=== PATIENT | female | born 1975 | race Caucasian/White ===

== ENCOUNTER 2016-12-27 15:49 | Emergency (ER) | payer OTHER ==
[~2016-12-27] VITALS: Ht 170.2 cm; Wt 106.0 kg
[2016-12-27] MEDS ORDERED: SODIUM CHLORIDE 0.9% 1000ML 1,000 ML IV STA (16:06)
[2016-12-27 16:33] VITALS: Ht 170.2 cm; Wt 106.0 kg
[2016-12-27 16:36] VITALS: O2SAT 96
[2016-12-27] MEDS ORDERED: ACETAMINOPHEN 500 MG TAB PO STA (16:37)
[2016-12-27 17:03] LABS: BASO % 0.2 %; BASO ABS # 0.02 K/uL (0-0.2); EOS % 3.4 %; HEMATOCRIT 25.9 % (37-47); IG% 0.3 %; LYMPH ABS # 1.21 K/uL (1.2-3.4); MEAN CELL VOLUME 80.9 fL (80-100); MEAN CORPUSCULAR HEMOGLOBIN 25.3 pg (25-34); MEAN CORPUSCULAR HGB CONC 31.3 g/dl (32-36); MEAN PLATELET VOLUME 10.4 fL (7.4-10.4); NEUT % 75.1 %; PLATELET COUNT 339 K/uL (130-400); WHITE BLOOD COUNT 8.63 K/uL (4.8-10.8)
[2016-12-27 17:10] LABS: INR 0.9 (0.9-1.1); PARTIAL THROMBOPLASTIN RATIO 1.2; PROTHROMBIN TIME (PATIENT) 9.6 SECONDS (9.0-12.0)
[2016-12-27 17:22] LABS: BUN/CREATININE RATIO 9.9 (10-20); CALCIUM 8.5 mg/dl (8.5-10.1); CREATININE 0.65 mg/dl (0.60-1.20); POTASSIUM 3.4 mmol/L (3.5-5.1)
[2016-12-27 17:25] LABS: ALB/GLOB RATIO 0.4 (0.9-2)
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
[2016-12-27 18:04] LABS: ANISOCYTOSIS PRESENT; COMPLETE YES
--- NOTE | 2016-12-27 19:13 | DIAGNOSTIC IMAGING REPORT ---
ABDOMEN LIMITED (US) CLINICAL HISTORY: Eval for free fluid(FAST) and spleen. Anemic on CBC COMPARISON STUDY: Abdominal ultrasound 12/26/2008. FINDINGS: No free fluid within the abdomen or pelvis. The visualized liver and spleen are unremarkable. IMPRESSION: No free fluid identified within the abdomen or pelvis. Electronically signed by: Jam King M.D. 12/27/2016 7:12 PM Dictated Date/Time: 12/27/2016 7:08 PM
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
[2016-12-27 20:21] LABS: URINE APPEARANCE CLEAR (CLEAR); URINE BILIRUBIN NEG (NEG); URINE COLOR DK YELLOW; URINE EPITHELIAL CELL AUTO >30 /lpf (0-5); URINE NITRITE NEG (NEG); URINE SPECIFIC GRAVITY 1.017 (1.000-1.030); UROBILINOGEN NEG (NEG)
[2016-12-27 20:25] LABS: MANUAL MICROSCOPIC REQUIRED? NO; REVIEW REQ? YES
[2016-12-27 20:41] LABS: URINE MUCUS PRESENT (NONE PRSENT)
[2016-12-27 20:52] LABS: BENZODIAZEPINE, URINE NEG (NEG); COCAINE,URINE NEG (NEG); PHENCYCLIDINE, URINE NEG (NEG)
[2016-12-27 21:09] VITALS: BP 118/70; PULSE 80; TEMP 36.9; O2SAT 97
[2016-12-27] MEDS ORDERED: PRENTAB26 PO (22:29)
[2016-12-27] MEDS ORDERED: FRRS300 MT (22:29)
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
== END 2016-12-27 21:09 | disposition home or self-care (01) ==
LOC: C.EDB 15:52
DX: S60.221A Contusion of right hand, initial encounter (principal); S80.01XA Contusion of right knee, initial encounter; S80.02XA Contusion of left knee, initial encounter; S50.811A Abrasion of right forearm, initial encounter; S60.414A Abrasion of right ring finger, initial encounter; S80.211A Abrasion, right knee, initial encounter; S80.212A Abrasion, left knee, initial encounter; Y04.8XXA Assault by other bodily force, initial encounter; O99.012 Anemia complicating pregnancy, second trimester; O9A.312 Physical abuse complicating pregnancy, second trimester; O36.8120 Decreased fetal movements, second trimester, not applicable or unspecified; O99.332 Smoking (tobacco) complicating pregnancy, second trimester; F17.200 Nicotine dependence, unspecified, uncomplicated

== ENCOUNTER 2016-12-27 21:55 | Outpatient (CLI) | payer OTHER ==
[~2016-12-27] VITALS: Ht 175.3 cm; Wt 107.0 kg
[2016-12-27] MEDS ORDERED: PRENTAB26 PO (22:29)
[2016-12-27] MEDS ORDERED: FRRS300 MT (22:29)
[2016-12-27 22:42] VITALS: Ht 175.3 cm; Wt 107.0 kg
[2017-02-23] MEDS ORDERED: MTR600X PO (10:33)
[2017-02-23] MEDS ORDERED: PRENTAB26 PO (10:33)
[2017-02-23] MEDS ORDERED: ACET-1047 PO (10:33)
== END 2016-12-27 22:46 | disposition home or self-care (01) ==
LOC: C.OPB 21:55 → C.LD 21:55 → C.OPB 22:46
PROVIDERS: ATTEND Obstetrics & Gynecology
DX: O36.8130 Decreased fetal movements, third trimester, not applicable or unspecified (principal); Z3A.31 31 weeks gestation of pregnancy

== ENCOUNTER 2017-02-21 19:08 | Inpatient (IN) | payer OTHER ==
[~2017-02-21] VITALS: Ht 175.3 cm; Wt 112.3 kg
[~2017-02-21 19:08] MED LIST: FRRS300 MT; PRENTAB26 PO
[2017-02-21] MEDS ORDERED: LACTATED RINGER'S 1000ML 1,000 ML IV PRN (19:42)
[2017-02-21] MEDS ORDERED: DINOPROSTONE 10 MG INSERT PV ONE (19:45)
[2017-02-21 20:08] LABS: HEMATOCRIT 27.1 % (37-47); MEAN CELL VOLUME 75.9 fL (80-100); MEAN CORPUSCULAR HEMOGLOBIN 22.7 pg (25-34); MEAN CORPUSCULAR HGB CONC 29.9 g/dl (32-36); MEAN PLATELET VOLUME 9.9 fL (7.4-10.4); PLATELET COUNT 326 K/uL (130-400); RED BLOOD COUNT 3.57 M/uL (4.2-5.4); WHITE BLOOD COUNT 9.35 K/uL (4.8-10.8)
[2017-02-21] MEDS ORDERED: FERR50TA3 PO (21:38)
[2017-02-21 21:41] VITALS: Ht 175.3 cm; Wt 112.3 kg
[2017-02-21 22:49] LABS: BENZODIAZEPINE, URINE NEG (NEG); COCAINE,URINE NEG (NEG); PHENCYCLIDINE, URINE NEG (NEG)
[2017-02-22] MEDS ORDERED: LACTATED RINGER'S 1000ML 500 ML IV PRN (08:27)
[2017-02-22] MEDS ORDERED: OXYTOCIN 30 UNITS/500ML NSS IV PRN (08:30)
[2017-02-22] MEDS ORDERED: BUTORPHANOL TARTRATE 1 MG/ML VIAL IV PRN (09:00)
[2017-02-22] MEDS ORDERED: ONDANSETRON INJ 2 MG/ML 2 ML VIAL IV PRN (09:00)
[2017-02-22 10:00] LABS: CALCIUM 8.5 mg/dl (8.5-10.1); CREATININE 0.55 mg/dl (0.60-1.20); POTASSIUM 3.8 mmol/L (3.5-5.1)
[2017-02-22 10:11] LABS: ALB/GLOB RATIO 0.5 (0.9-2); THYROID STIMULATING HORMONE 1.55 uIu/ml (0.300-4.500)
[2017-02-22 10:21] LABS: INR 0.9 (0.9-1.1); PARTIAL THROMBOPLASTIN RATIO 1.1; PROTHROMBIN TIME (PATIENT) 9.4 SECONDS (9.0-12.0)
[2017-02-22] MEDS: LACTATED RINGER'S 1000ML 1,000 ML IV SCH (10:42)
[2017-02-22] MEDS ORDERED: FLUCONAZOLE 50 MG TAB PO ONE (16:15)
[2017-02-22] MEDS: FERROUS SULFATE 325 MG TAB PO SCH ×2 (16:34→17:30)
[2017-02-22] MEDS: ACETAMINOPHEN 325 MG TAB PO PRN (17:38)
[2017-02-22] MEDS: MISOPROSTOLTAB 50 MCG TAB PO SCH (21:10)
[2017-02-23] MEDS: MISOPROSTOLTAB 50 MCG TAB PO SCH (01:19)
[2017-02-23] MEDS ORDERED: CALCIUM CARBONATE 500 MG CHEWABLE PO PRN (01:30)
[2017-02-23] MEDS ORDERED: MISOPROSTOL 100 MCG TAB PO SCH (05:20)
[2017-02-23] MEDS: ACETAMINOPHEN 325 MG TAB PO PRN (05:44)
[2017-02-23] MEDS: FERROUS SULFATE 325 MG TAB PO SCH (08:00)
[2017-02-23] MEDS ORDERED: BUPIVACAINE 0.25% 30 ML VIAL ONE (08:28)
[2017-02-23] MEDS ORDERED: EpHEDrine SULFATE INJ 50 MG/ML AMP ONE (08:29)
[2017-02-23] MEDS ORDERED: FENTANYL CITRATE INJ 50 MCG/1 ML 2 ML VIAL ONE (08:29)
[2017-02-23] MEDS ORDERED: FENTANYL 2MCG/ML ROPIV 1.25MG/ML 100ML BAG EPI ONE (08:29)
[2017-02-23] MEDS ORDERED: NALBUPHINE HCL INJ 10 MG/ML AMP IV PRN (09:30)
[2017-02-23] MEDS ORDERED: NALOXONE HCL INJ 0.4 MG/1 ML VIAL/CARP IV PRN (09:30)
[2017-02-23] MEDS ORDERED: LACTATED RINGER'S 1000ML 500 ML IV PRN (09:30)
[2017-02-23] MEDS ORDERED: ONDANSETRON INJ 2 MG/ML 2 ML VIAL IV PRN (09:30)
[2017-02-23] MEDS ORDERED: METOCLOPRAMIDE HCL INJ 20 MG in SODIUM CHLORIDE 0.9% 50ML 50 ML IV PRN (09:30)
[2017-02-23] MEDS ORDERED: FENTANYL 2MCG/ML ROPIV 1.25MG/ML 100ML BAG EPI PRN (09:30)
[2017-02-23] MEDS ORDERED: EpHEDrine SULFATE INJ 50 MG/ML AMP IV PRN (09:30)
[2017-02-23] MEDS ORDERED: DiphenhydrAMINE HCL 50 MG/ML VIAL IV PRN (09:30)
[2017-02-23] MEDS ORDERED: NALOXONE HCL INJ 1 MG in SODIUM CHLORIDE 0.9% 1000ML 1,000 ML IV PRN ×4 (09:30)
[2017-02-23] MEDS ORDERED: PROMETHAZINE HCL INJ 25 MG in SODIUM CHLORIDE 0.9% 50ML 50 ML IV PRN (09:30)
[2017-02-23] MEDS: LACTATED RINGER'S 1000ML 1,000 ML IV SCH (09:45)
[2017-02-23] MEDS ORDERED: DIPHTHERIA/TETANUS/PERTUSSIS 0.5 ML SYR/VIAL IM. ONE (10:30)
[2017-02-23] MEDS ORDERED: IBUPROFEN 600 MG TAB PO PRN (10:30)
[2017-02-23] MEDS ORDERED: HYDROCORTISONE ACETATE 25 MG SUPP PR PRN (10:30)
[2017-02-23] MEDS ORDERED: OXYCODONE/ACETAMINOPHEN 5-325 TAB PO PRN (10:30)
[2017-02-23] MEDS ORDERED: BENZOCAINE 20% AER SPR 82.5 GM CAN EXT PRN (10:30)
[2017-02-23] MEDS ORDERED: OXYTOCIN 30 UNITS/500ML NSS IV PRN (10:30)
[2017-02-23] MEDS ORDERED: SUPERCREAM 0.870 % 15GM JAR EXT PRN (10:30)
[2017-02-23] MEDS ORDERED: LANOLIN OINT EXT PRN ×2 (10:30)
[2017-02-23] MEDS ORDERED: ACETAMINOPHEN 325 MG TAB PO PRN (10:30)
[2017-02-23] MEDS ORDERED: MEASLES, MUMPS & RUBELLA VIRUS VIAL SQ. ONE (10:30)
[2017-02-23] MEDS ORDERED: PRENTAB26 PO (10:33)
[2017-02-23] MEDS ORDERED: ACET-1047 PO (10:33)
[2017-02-23] MEDS ORDERED: MTR600X PO (10:33)
--- NOTE | 2017-02-23 10:35 | Discharge Instructions ---
Discharge Instructions Date of Service Feb 23, 2017. Admission Reason for Admission: Scheduled Induction; Demise Discharge Discharge Diagnosis / Problem: Induction of labor and delivery Discharge Goals Goal(s): Decrease discomfort, Improve function, Increase independence Activity Recommendations Activity Limitations: as noted below Lifting Limitations: no more than 10 pounds Exercise/Sports Limitations: until after follow-up appointment May Resume Sexual Activity: after follow-up appointment Shower/Bathe: no limitations ACTIVITY RECOMMENDATIONS: * Vaginal rest (no tampons, douching, intercourse) until after doctor 's visit. * control as discussed with doctor. * Wear a bra for 24 hours/day for comfort. SPECIAL CARE INSTRUCTIONS: Medications: * vitamins, one tablet daily. Continue taking until prescription is complete. Call you doctor if: * Temperature greater than or equal to 100.4 degrees F or 38.0 degrees C. * Bleeding becomes heavier than the heaviest part of your period - saturating a sanitary pad within an hour. * Passing large clots. * Unrelieved pain. * Bleeding has a foul smelling odor. * Signs and symptoms of phlebitis: leg pain, warm, red or swollen area on leg. ___ incision has increased pain, redness, swelling, presence of any drainage, or if the incision starts to open up. FOLLOW UP VISIT: If appointment is not already scheduled: Please call doctor's office to schedule a follow-up appointment. . Instructions / Follow-Up Instructions / Follow-Up . ACTIVITY RECOMMENDATIONS: * Vaginal rest (no tampons, douching, intercourse) until after doctor 's visit. * control as discussed with doctor. * Wear a bra for 24 hours/day for comfort. SPECIAL CARE INSTRUCTIONS: Medications: * vitamins, one tablet daily. Continue taking until prescription is complete. Call you doctor if: * Temperature greater than or equal to 100.4 degrees F or 38.0 degrees C. * Bleeding becomes heavier than the heaviest part of your period - saturating a sanitary pad within an hour. * Passing large clots. * Unrelieved pain. * Bleeding has a foul smelling odor. * Signs and symptoms of phlebitis: leg pain, warm, red or swollen area on leg. incision has increased pain, redness, swelling, presence of any drainage, or if the incision starts to open up. FOLLOW UP VISIT: If appointment is not already scheduled: Please call doctor's office to schedule a follow-up appointment. Current Hospital Diet Patient's current hospital diet: Regular OB Diet Discahrge Diet Recommended Diet: Regular Diet Pending Studies Studies pending at discharge: yes List of pending studies: Blood work from labor and delivery Please discuss at the office Medical Emergencies . Who to Call and When: Medical Emergencies: If at any time you feel your situation is an emergency, please call 911 immediately. . Non-Emergent Contact Non-Emergency issues call your: Surgeon Call Non-Emergent contact if: temperature is above 100.5, your pain is not controlled . . "Provider Documentation" section prepared by Francisca Lai. . VTE Core Measure Inpt VTE Proph given/why not?: Treatment not indicated
[2017-02-23] MEDS ORDERED: MOTRIN HOME PACK 600 MG (4)BTL PO ONE (10:45)
[2017-02-23] MEDS ORDERED: ACETAMINOPHEN 325 MG TAB PO SCH (11:00)
[2017-02-23] MEDS ORDERED: METHYLERGONOVINE MALEATE 0.2 MG TAB PO SCH ×2 (11:00→12:00)
[2017-02-23] MEDS ORDERED: IBUPROFEN 600 MG TAB PO SCH ×2 (13:00→18:00)
--- NOTE | 2017-02-23 13:11 | Anesthesia Procedure Note ---
Anesthesia Epidural Removal Nt Date & Time Feb 23, 2017 at 13:11 Vital Signs Pain Intensity: 10.0 Notes Mental Status: alert / awake / arousable, participated in evaluation Nausea / Vomiting: adequately controlled Pain: adequately controlled Airway Patency, RR, SpO2: stable & adequate BP & HR: stable & adequate Hydration State: stable & adequate Neuraxial Anesthesia: was administered Anesthetic Complications: no major complications apparent, pt satisfied with anesthetic care Epidural: removed without complications, with tip intact
[2017-02-23 17:14] LABS: HEMATOCRIT 31.4 % (37-47); MEAN CELL VOLUME 76.6 fL (80-100); MEAN CORPUSCULAR HEMOGLOBIN 22.2 pg (25-34); MEAN PLATELET VOLUME 10.3 fL (7.4-10.4); PLATELET COUNT 317 K/uL (130-400)
[2017-02-23] MEDS ORDERED: FERROUS SULFATE 325 MG TAB PO SCH (18:00)
[2017-02-23] MEDS ORDERED: DOCUSATE SODIUM 100 MG CAP PO SCH (20:00)
--- NOTE | 2017-02-23 22:27 | DELIVERY SUMMARY ---
DATE OF OPERATION: 02/23/2017 TIME OF DELIVERY OF BABY: 10:03 a.m. TIME OF DELIVERY OF PLACENTA: 10:19 a.m. DETAILS OF DELIVERY: The patient is 42-year-old, G6, P3-0-2-3 at 39 weeks and 3 days who presented to labor and delivery on 02/21/2017 with intrauterine demise diagnosed at office. She received Cervidil for cervical ripening and then Pitocin on February 22 with no cervical change and then she received Cytotec for 3 doses. Then she desired epidural for pain. After epidural was given, the patient was checked to be fully dilated with a bulging bag. AROM was done with dark blood stained amniotic fluid was seen. Head was at +1 station. The patient felt pressure and desired to push. She pushed for 2 times and delivered the head without difficulty. Shoulders were delivered with minimal traction and baby was delivered completely without difficulty. Cord was clamped x2 and cut and baby was handed off to the nurses. Vagina and perineum were checked for lacerations. They were intact, no lacerations were found and the placenta was found to be in the vagina, delivered spontaneously as intact and complete. Uterus was explored and found to be empty. Fundus was firm. Lower segment was cleared of all clots and debris. EBL was 200. Mom tolerated the procedure well. Sponge, lap, needle and instrument counts were correct x2. Baby was unfortunately a demised female , grossly normal except scalp skin edema and subcuticular edema of neck, face and posterior neck. Extensive skin maceration/ peeling was noted on the extremities and trunk and weight was 8 lb 3 oz. Mom declined autopsy or further testing. She desired to be discharged this afternoon if she were able to. All questions were answered. I attest to the content of the Intraoperative Record and any orders documented therein. Any exceptions are noted below. MTDD
[2017-02-24] MEDS ORDERED: PRENATAL VITAMIN TAB PO SCH (08:00)
[2017-02-24] MEDS ORDERED: FERROUS SULFATE 325 MG TAB PO SCH (08:00)
[2017-02-27 06:32] LABS: CYTOMEGALOVIRUS IGG AB <0.60 U/ML; PARVOVIRUS IgG INDEX 6.3 (<0.9); PARVOVIRUS IgM INDEX 0.3 (<0.9)
== END 2017-02-23 18:10 | disposition home or self-care (01) | DRG 775 ==
LOC: C.LD 19:08
PROVIDERS: ADMIT Obstetrics & Gynecology; ATTEND Obstetrics & Gynecology
PROC: 10E0XZZ Delivery of Products of Conception, External Approach (ICD-10-PCS; principal; 2017-02-23)
PROC: 3E033VJ Introduction of Other Hormone into Peripheral Vein, Percutaneous Approach (ICD-10-PCS; principal; 2017-02-23)
DX: O36.4XX1 Maternal care for intrauterine death, fetus 1 (principal); O99.820 Streptococcus B carrier state complicating pregnancy; O99.333 Smoking (tobacco) complicating pregnancy, third trimester; F17.200 Nicotine dependence, unspecified, uncomplicated; Z3A.39 39 weeks gestation of pregnancy; Z37.1 Single stillbirth

== ENCOUNTER 2022-11-05 17:40 | Inpatient (IN) ==
[2022-11-05] MEDS ORDERED: SODIUM CHLORIDE 0.9% 1000ML 1,000 ML IV STA (18:17)
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
[2022-11-05] MEDS ORDERED: LORazepam 1 MG TAB SL STA (19:07)
--- NOTE | 2022-11-05 19:08 | XRay Report ---
XR chest 2V PA/lateral CLINICAL HISTORY: C/P, SOB TECHNIQUE: 2 views of the chest were obtained. Comparison: Comparison is made to chest radiograph 11/27/2010 FINDINGS: No lines and tubes are seen. The cardiomediastinal silhouette is normal. The lungs are clear. No evid ence of pleural effusion or pneumothorax. Degenerative changes are seen in the spine. IMPRESSION: No acute chest disease. ACT 112: Negative or not required by law. Electronically signed by: Jostin Madison M.D. 11/05/2022 7:07 PM
--- NOTE | 2022-11-05 19:10 | XRay Report ---
XR lumbar spine min 4V routine CLINICAL HISTORY: R lumbar radiculitis TECHNIQUE: 5 views of the lumbar spine were obtained. Comparison: None available at the time of this dictation. FINDINGS: There is no evidence of an acute fracture. Degenerative changes are seen in the lumbar spine. The ali gnment is normal. No soft tissue abnormality is seen. Incidental note is made of an IUD. IMPRESSION: Degenerative changes as above without acute fracture or subluxation. ACT 112: Negative or not required by law. Electronically signed by: Jotsin Madison M.D. 11/05/2022 7:08 PM
[2022-11-05 20:21] LABS: Basophils # (auto) 0.03 K/uL (0-0.2); Basophils % (auto) 0.3 %; Eosinophils # (auto) 0.02 K/uL (0-0.50); Eosinophils % (auto) 0.2 %; Hematocrit (blood only) 35.8 % (37.0-47.0); Hemoglobin 11.7 g/dl (12.0-16.0); Immature Granulocytes # (auto) 0.04 K/uL (0.01-0.20); Immature Granulocytes % (auto) 0.4 %; Lymphocytes # (auto) 1.14 K/uL (1.2-3.4); Lymphocytes % (auto) 12.3 %; Mean Corpuscular Hemoglobin 28.3 pg (25.0-34.0); Mean Corpuscular Hgb Conc 32.7 g/dL (32.0-36.0); Mean Corpuscular Volume 86.5 fL (80.0-100.0); Mean Platelet Volume 11.5 fL (9.4-12.4); Monocytes # (auto) 0.44 K/uL (0.11-0.59); Monocytes % (auto) 4.8 %; Neutrophils # (auto) 7.59 K/uL (1.40-6.50); Platelet Count 237 K/uL (130-400); RDW Coefficient of Variation 15.9 % (11.5-14.5); RDW Standard Deviation 49.3 fL (36.4-46.3); Red Blood Count 4.14 M/uL (4.20-5.40); White Blood Count 9.26 K/ul (4.8-10.8)
[2022-11-05 20:36] LABS: Alanine Aminotransferase 77 U/L (7-52); Albumin Globulin Ratio 1.1 (0.9-2); Albumin Level 3.9 gm/dl (3.4-5.0); Alkaline Phosphatase 49 U/L (34-104); Anion Gap 9 (3-11); Aspartate Aminotransferase 126 U/L (13-39); Bilirubin,Total 0.5 mg/dl (0.2-1.0); Blood Urea Nitrogen 22 mg/dl (6-23); Calcium 9.7 mg/dl (8.6-10.3); Carbon Dioxide 23 mmol/L (21-32); Chloride 102 mmol/L (98-107); Est GFR (African American) 119.2 ml/min; Est GFR (Non-African American) 102.9 ml/min; Globulin 3.4 gm/dl (2.5-4.0); Glucose 102 mg/dl (70-99(Fasting)); Lipase 13 U/L (11-82); Potassium 4.3 mmol/L (3.5-5.1); Sodium 134 mmol/L (136-145); Total Protein 7.3 gm/dl (6.0-8.3)
[2022-11-05 20:44] LABS: Troponin I High Sensitivity 18.1 pg/ml (0-14)
[2022-11-05] MEDS ORDERED: ASPIRIN 81 MG CHEW PO STA (20:48)
[2022-11-05 20:53] LABS: Partial Thromboplastin Ratio 0.9; Partial Thromboplastin Time 25.9 Seconds (21.0-31.0)
[2022-11-05] MEDS ORDERED: MoRPHine SULFATE 4 MG/ML 1 ML CARP\\VIAL IV STA (21:00)
[2022-11-05 21:04] LABS: D Dimer 11830 ug/L FEU (0-500)
[2022-11-05] MEDS ORDERED: LORazepam 2 MG/1 ML VIAL IV STA (22:25)
--- NOTE | 2022-11-06 00:06 | Ultrasound Report ---
Exam(s): US VENOUS BILATERAL LOWER EXTREMITIES EXAM: US Duplex Bilateral Lower Extremities Veins CLINICAL HISTORY: Reason for exam: RLE pain, possible PEs. TECHNIQUE: Real-time duplex ultrasound scan of the bilateral lower extremity veins integrating B-mode two-dimensional vascular structure, Doppler spectral analysis, color flow Doppler imaging and compression. COMPARISON: No relevant prior studies available. FINDINGS: Right deep veins: In the right lower extremity there is occlusive thrombus within the popliteal vein, posterior tibial vein, and peroneal vein. No thrombus in the common femoral vein or femoral vein. Right superficial veins: Superficial thrombus within the right gastrocnemius vein. Left deep veins:. The visualized deep veins of the left lower extremity are compressible with color flow. No visualized thrombus. Left superficial veins: Left lower extremity superficial thrombus within the gastrocnemius vein. Soft tissues: No acute findings. IMPRESSION: 1. In the right lower extremity there is occlusive thrombus within the popliteal vein, posterior tibial vein, and peroneal vein. 2. Superficial thrombus within the right gastrocnemius vein. 3. Left lower extremity superficial thrombus within the gastrocnemius vein. Communications: Verify Receipt Electronically signed by: Floyd Fall MD 11/06/22 00:04 AM
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
[2022-11-06] MEDS ORDERED: Heparin IV Adult Wt-Based Standard *NO* Bolus Protocol IV SCH (02:26)
[2022-11-06] MEDS ORDERED: DEXAMETHASONE SOD INJ 4 MG/ML VIAL IV STA (02:26)
[2022-11-06] MEDS ORDERED: LORazepam 2 MG/1 ML VIAL IV PRN (02:26)
[2022-11-06] MEDS ORDERED: MoRPHine SULFATE 4 MG/ML 1 ML CARP\\VIAL IV PRN (02:26)
[2022-11-06] MEDS ORDERED: NITROGLYCERIN SL 0.4 MG/TAB TAB SL PRN (02:26)
[2022-11-06] MEDS ORDERED: dexAMETHasone 10 MG in SYRINGE 0 ML IV STA (02:38)
[2022-11-06 03:20] LABS: Appearance Urine Clear (Clear); Bilirubin Urine Negative (Negative); Blood Urine Negative (Negative); Color Urine Yellow; Glucose Urine UA Negative (Negative); Ketones Urine 1+ (Negative); Leukocyte Esterase Urine Negative (Negative); Nitrite Urine Negative (Negative); Protein Urine Negative (Negative); Specific Gravity Urine 1.027 (1.000-1.030); Urobilinogen Urine Negative (Negative)
[2022-11-06 03:42] LABS: Amphetamines+Metham, Urine Pos (Neg); Barbiturates, Urine Neg (Neg); Benzodiazepine, Urine Neg (Neg); Cocaine, Urine Neg (Neg); MDMA (Ecstacy), Urine Pos (Neg); Methadone, Urine Neg (Neg); Opiate, Urine Pos (Neg); Phencyclidine, Urine Neg (Neg)
[2022-11-06] MEDS: ONDANSETRON INJ 2 MG/ML 2 ML VIAL IV PRN (04:23)
[2022-11-06] MEDS: HEPARIN SODIUM/DEXTROSE 25,000 UNITS/500 ML BAG IV SCH ×2 (04:34→19:01)
[2022-11-06] MEDS: DOXYCYCLINE HYCLATE 100 MG CAP PO SCH ×4 (04:48→23:07)
[2022-11-06 06:05] LABS: Basophils # (auto) 0.03 K/uL (0-0.2); Basophils % (auto) 0.3 %; Eosinophils # (auto) 0.14 K/uL (0-0.50); Eosinophils % (auto) 1.3 %; Hematocrit (blood only) 33.6 % (37.0-47.0); Hemoglobin 11.1 g/dl (12.0-16.0); Immature Granulocytes # (auto) 0.07 K/uL (0.01-0.20); Immature Granulocytes % (auto) 0.7 %; Lymphocytes # (auto) 1.08 K/uL (1.2-3.4); Mean Corpuscular Volume 84.8 fL (80.0-100.0); Mean Platelet Volume 11.2 fL (9.4-12.4); Monocytes # (auto) 0.38 K/uL (0.11-0.59); Monocytes % (auto) 3.5 %; Neutrophils # (auto) 9.06 K/uL (1.40-6.50); Neutrophils % (auto) 84.2 %; Platelet Count 219 K/uL (130-400); RDW Coefficient of Variation 15.9 % (11.5-14.5); RDW Standard Deviation 48.8 fL (36.4-46.3); Red Blood Count 3.96 M/uL (4.20-5.40); White Blood Count 10.76 K/ul (4.8-10.8)
[2022-11-06 06:23] LABS: Albumin Level 3.5 gm/dl (3.4-5.0); BUN Creatinine Ratio 28.6 (10-20); Bilirubin Direct 0.1 mg/dl (0-0.2); Bilirubin,Total 0.5 mg/dl (0.2-1.0); Calcium 8.9 mg/dl (8.6-10.3); Creatinine Clr Calc Pharmacy 148.1 ml/min; Est GFR (African American) 125.6 ml/min; Est GFR (Non-African American) 108.3 ml/min; Magnesium 1.9 mg/dl (1.7-2.4); Potassium 4.1 mmol/L (3.5-5.1); Total Protein 6.6 gm/dl (6.0-8.3)
[2022-11-06 06:30] LABS: Troponin I High Sensitivity 11.5 pg/ml (0-14)
[2022-11-06] MEDS: CHOLECALCIFEROL 1,000 UNITS 25 MCG TAB PO SCH (08:51)
[2022-11-06] MEDS: ATOMOXETINE HCL 25 MG CAPSULE PO SCH ×2 (08:51→08:57)
--- NOTE | 2022-11-06 10:35 | Nuclear Medicine Report ---
NM pul perfusion HISTORY: 47 years-old Female PE? elevated d dimer acute shortness of breath and lower extremity DVT COMPARISON: Duplex venous Doppler study and chest radiograph 11/05/2022 TECHNIQUE: Ventilation scan was obtained following the intravenous administration of 5.3 mCi techneti um 99 MAA administered via the right upper extremity. Due to ongoing droplet precautions, the ventila tion portion of the study was not obtained. FINDINGS: Numerous segmental perfusion defects are noted within the lungs which are moderate to large, and wedg e-shaped in morphology. IMPRESSION: High probability for pulmonary embolus. ACT 112: Negative or not required by law. The above report was generated using voice recognition software. It may contain grammatical, syntax o r spelling errors. Electronically signed by: Augie Schneider M.D. 11/06/2022 10:34 AM
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
[2022-11-06] MEDS: hydrOXYzine HCl 10 MG TAB PO PRN (12:28)
--- NOTE | 2022-11-06 13:58 | Hospitalist Progress Note ---
Date of Service November 06, 2022 Assessment & Plan (1) Acute pulmonary embolism with acute cor pulmonale: Plan: Presented with right leg pain and SOB. Found to have DVT and PE. Declined CTA chest due to fear of pricking for contrast and hence got NM pulmonary perfusion scan- results as below. NM pulmonary perfusion 11/06 - Numerous segmental perfusion defects are noted within the lungs which are moderate to large, and wedge-shaped in morphology. - IMPRESSION: High probability for pulmonary embolus. US LE 11/05 1. In the right lower extremity there is occlusive thrombus within the popliteal vein, posterior tibial vein, and peroneal vein. 2. Superficial thrombus within the right gastrocnemius vein. 3. Left lower extremity superficial thrombus within the gastrocnemius vein. D dimer- 70437. Trop mildly elevated on admission and now normal Echo pending 1st episode of VTE. Denies any personal or family h/o clotting issues. States she has been mostly sedentary for the past month which is likely the reason of h er DVT and PE. Declines any contraceptive or hormonal. Denies any surgery or prolonged travel. She is however not uptodate on age appropriate cancer screening and recommended to follow up with PCP for mammogram and cervical cancer screening She is already on heparin drip and hence hypercoag work up can not be done. Recommended f/u with PCP for mammo/pap and hypercoag work up once off of anticoagulation Plan: - Continue heparin drip. If unable to lab draw due to patient's extreme fear of needle prick, we will change to lovenox. - Change to eliquis at discharge. Copay $0 on birch check. (2) Acute deep vein thrombosis (DVT) of right lower extremity: Plan: Plan as above (3) Lyme disease: Plan: S/p 2 weeks of doxycycline. (4) Low back pain with sciatica: Plan: CT lumbar spine reviewed. Will get MRI L spine. Ortho spine has been consulted on admission. (5) Hepatitis C virus infection: Plan: Mild elevated transaminases. Patient was on sofosbuvir-velpatasvir but stopped taking, unable to specify when she stopped taking. Counseled and reinforced the need to be compliant with her medication to ensure cure of Hep C, lest it might progress to cirrhosis of liver- recommended to follow-up with the outreach program from where she gets the medications. (6) Polysubstance abuse: Plan: UDS positive for opiate, amphetamine, methamphetamine, marijuana however patient declines use of any other substance other than marijuana. (7) Tobacco abuse: Plan: Smokes less than half pack a day per patient. Recommended quitting. Continue NicoDerm patch (8) Anxiety and depression: Plan: Seen by psychiatry-recommendations noted. Psych will continue to follow in- house and as outpatient. Plan DVT prophylaxis-heparin drip. Disposition-pending medical stability. PT/OT eval. Echo, MRI and ortho eval pending. Admission and Anticipated Discharge Date Admission Date: November 05, 2022 Subjective Patient was seen and examined at bedside. She is very emotional labile. States her right leg feels stiff and she cannot feel her right leg for the past 5 days and has been using cane for the same. Has lrie-lvb-fmezlxi sensation and right lower extremity. She thought it was her sciatica which is worsening however she denies any bladder or bowel incontinence or weakness. Also has shortness of breath with minimal exertion. She denies any prior history of blood clots or any bleeding issues. Denies any family history of blood disorders. States she has been mostly sedentary for the past month as she was not feeling well. She however declines being on hormonal/contraceptives, any recent surgeries or long drives. She also stopped taking her doxycycline and antihep C medications. She states she wants to able to walk but she cannot stay in the hospital long as she is moving from [facility] to [place] and her stuff is packed in her car. 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 States she smokes less than half pack a day but denies alcohol abuse. States she smokes weed but denies any other drug abuse even when I explained that her UDS is positive for amphetamine and ecstasy. Review of Systems Review of Systems: All systems reviewed & are unremarkable except as noted in Subjective Physical Exam Physical Exam: General: Lying comfortably in bed, not in acute distress, on room air HEENT: EOMI, SHELBY, MMM Chest: Clear breath sounds bilaterally, no wheezes or crackles CVS: Tachycardia, normal heart sounds, no murmur Abdomen: Soft, non tender, not distended, normal bowel sounds Neuro: Awake, alert, oriented, conversing well. Decreased sensation on right leg compared to left Extremities: No cyanosis, clubbing. Trace RLE edema with some calf tenderness. Back: Minimal tenderness on palpation of lower back in the midline Results & Data Results & Data Vital Signs (Past 12 Hours) Vital Signs Temp Pulse Pulse Pulse Resp BP Pulse Ox 11/06/22 08:08 36.6 C 90 16 115/81 90 11/06/22 07:42 95 H 11/06/22 03:43 98 H 11/06/22 02:00 36.4 C L 97 H 20 122/85 98 11/06/22 02:28 36.4 C L 97 H 22 122/85 98 O2 Del Method 11/06/22 08:08 Room Air 11/06/22 07:42 11/06/22 03:43 11/06/22 02:00 Room Air 11/06/22 02:28 Room Air Laboratory Results Short CBC 11/05/22 11/06/22 Range/Units 19:22 05:45 WBC 9.26 10.76 (4.8-10.8) K/ul Hgb 11.7 L 11.1 L (12.0-16.0) g/dl Hct 35.8 L 33.6 L (37.0-47.0) % Plt Count 237 219 (130-400) K/uL BMP 11/05/22 11/06/22 19:22 05:45 Sodium 134 L 134 L Potassium 4.3 4.1 Chloride 102 105 Carbon Dioxide 23 22 BUN 22 18 Creatinine 0.71 0.63 Glucose 102 H 169 H Calcium 9.7 8.9 Liver Function 11/05/22 11/06/22 Range/Units 19:22 05:45 Total Bilirubin 0.5 0.5 (0.2-1.0) mg/dl Direct Bilirubin 0.1 (0-0.2) mg/dl AST 126 H 79 H (13-39) U/L ALT 77 H 61 H (7-52) U/L Alkaline Phosphatase 49 46 (34-104) U/L Albumin 3.9 3.5 (3.4-5.0) gm/dl Urine 11/06/22 Range/Units 03:10 Urine Color Yellow Urine Appearance Clear (Clear) Urine pH 6.0 (4.5-7.5) Ur Specific [place] 1.027 (1.000-1.030) Urine Protein Negative (Negative) Urine Glucose (UA) Negative (Negative) Diagnostic Findings Pulmonary Perfusion Imaging 11/06/22 02:26 NM pul perfusion HISTORY: 47 years-old Female PE? elevated d dimer acute shortness of breath and lower extremity DVT COMPARISON: Duplex venous Doppler study and chest radiograph 11/05/2022 TECHNIQUE: Ventilation scan was obtained following the intravenous administration of 5.3 mCi technetium 99 MAA administered via the right upper extremity. Due to ongoing droplet precautions, the ventilation portion of the study was not obtained. FINDINGS: Numerous segmental perfusion defects are noted within the lungs which are moderate to large, and wedge-shaped in morphology. IMPRESSION: High probability for pulmonary embolus. ACT 112: Negative or not required by law. The above report was generated using voice recognition software. It may contain grammatical, syntax or spelling errors. Electronically signed by: Augie Schneider M.D. 11/06/2022 10:34 AM Medications Administered Current Inpatient Medications Atomoxetine HCl (Atomoxetine Hcl 25 Mg Capsule) 25 mg PO DAILY [facility] Stop: 12/06/22 08:59 Last Admin: 11/06/22 08:57 Dose: Not Given Doxycycline Hyclate (Doxycycline Hyclate 100 Mg Cap) 100 mg PO BID PAM Stop: 11/16/22 02:25 Last Admin: 11/06/22 08:57 Dose: Not Given Hydroxyzine HCl (Hydroxyzine Hcl 10 Mg Tab) 10 mg PO QID PRN PRN Reason: Anxiety Stop: 12/06/22 11:40 Last Admin: 11/06/22 12:28 Dose: 10 mg Heparin Sodium/Dextrose (Heparin Sodium/Dextrose) 25,000 units in 500 mls @ 30 mls/hr IV .[id number] [facility]; Protocol Stop: 12/06/22 02:25 Last Titration: 11/06/22 07:09 Dose: 1,500 units/hr, 30 mls/hr Lorazepam (Lorazepam 2 Mg/1 Ml Vial) 0.25 mg IV Q4H PRN PRN Reason: Anxiety/Agitation Stop: 12/06/22 02:25 Last Admin: 11/06/22 04:32 Dose: 0.25 mg Morphine Sulfate (Morphine Sulfate 4 Mg/Ml 1 Ml Carp\Vial) 3 mg IV Q3H PRN PRN Reason: Pain Stop: 11/20/22 02:25 Nitroglycerin (Nitroglycerin Sl 0.4 Mg/Tab Tab) 0.4 mg SL Q5M PRN PRN Reason: Chest Pain Stop: 12/06/22 02:25 Ondansetron HCl (Ondansetron Inj 2 Mg/Ml 2 Ml Vial) 4 mg IV Q6H PRN PRN Reason: Nausea Stop: 12/06/22 02:25 Last Admin: 11/06/22 04:23 Dose: 4 mg Vitamin D (Cholecalciferol 1,000 Units 25 Mcg Tab) 1,000 units PO QAM [facility] Stop: 12/06/22 08:59 Last Admin: 11/06/22 08:51 Dose: 1,000 units
[2022-11-06 15:41] LABS: Partial Thromboplastin Ratio 1.4; Partial Thromboplastin Time 39.4 Seconds (21.0-31.0)
[2022-11-06] MEDS: ACETAMINOPHEN 325 MG TAB PO PRN (22:06)
[2022-11-07 00:11] LABS: Partial Thromboplastin Ratio 1.5
[2022-11-07 00:21] LABS: Partial Thromboplastin Time 42.2 Seconds (21.0-31.0)
[2022-11-07] MEDS: ACETAMINOPHEN 325 MG TAB PO PRN (03:07)
[2022-11-07] MEDS: hydrOXYzine HCl 10 MG TAB PO PRN ×2 (05:30→08:54)
[2022-11-07] MEDS ORDERED: traMADol HCL 50 MG TABLET PO STA (05:54)
[2022-11-07 06:58] LABS: Hematocrit (blood only) 31.8 % (37.0-47.0); Hemoglobin 10.4 g/dl (12.0-16.0); Mean Corpuscular Hemoglobin 28.3 pg (25.0-34.0); Mean Corpuscular Hgb Conc 32.7 g/dL (32.0-36.0); Mean Corpuscular Volume 86.4 fL (80.0-100.0); Platelet Count 233 K/uL (130-400); RDW Coefficient of Variation 16.1 % (11.5-14.5); RDW Standard Deviation 50.2 fL (36.4-46.3); Red Blood Count 3.68 M/uL (4.20-5.40); White Blood Count 10.82 K/ul (4.8-10.8)
[2022-11-07 07:10] LABS: BUN Creatinine Ratio 27.4 (10-20); Calcium 8.8 mg/dl (8.6-10.3); Creatinine Clr Calc Pharmacy 153.1 ml/min; Est GFR (African American) 126.2 ml/min; Est GFR (Non-African American) 108.9 ml/min; Magnesium 1.9 mg/dl (1.7-2.4)
[2022-11-07 07:35] LABS: Partial Thromboplastin Ratio 1.7
[2022-11-07 07:37] LABS: Partial Thromboplastin Time 48.1 Seconds (21.0-31.0)
--- NOTE | 2022-11-07 08:20 | Orthopedic Consultation ---
Date of Consultation November 07, 2022 Assessment & Plan (1) Low back pain with sciatica: MRI lumbar spine available for review does demonstrate some modest disc protrusion L4-L5 but no gross neural compression. Suspect majority of her symptoms are related to her DVT. Did not appreciate any on MRI that is surgical in nature. If she continues to have sciatic after resolution of her blood clots interventional pain management be warranted. Again at this time she is clearly not a surgical candidate. History of Present Illness Reason for Consultation: Right leg pain Attending Physician: Rusty Alba MD History of Present Illness This is a 47-year-old female who presents with multiple medical issues as well as significant drug history complaining of 5 days of right leg pain in the right buttock posterior thigh extending below the knee into the foot. She denies any precipitating trauma fall or event. Left lower extremities asymptomatic. She denies any deficits in strength or sensation. Allergies Allergy/AdvReac Type Severity Reaction Status Date / Time No Known Allergies Allergy Verified 11/05/22 19:25 Home Medications Medication Instructions Recorded Confirmed Type atomoxetine 25 mg capsule 25 mg PO DAILY 11/05/22 11/05/22 History (Strattera) cholecalciferol (vitamin D3) 25 25 mcg PO QAM 11/05/22 11/05/22 History mcg (1,000 unit) tablet doxycycline hyclate 100 mg capsule 100 mg PO UD 11/05/22 11/05/22 History meloxicam 15 mg tablet 15 mg PO QAM 11/05/22 11/05/22 History sofosbuvir 400 mg-velpatasvir 100 1 tab PO UD 11/05/22 11/05/22 History mg tablet apixaban 5 mg (74 tabs) tablets in 5 mg PO BID #74 ea 11/06/22 Rx a dose pack (Eliquis) Patient History Medical History ADHD Lyme disease Sciatica Surgical History No significant past surgical history Social History Smoking Status: Current some day smoker Second Hand Exposure: Yes; Do You Dip or Chew Tobacco: No; Tobacco Cessation Education Requested by Patient: No Hx Alcohol Use: No Hx Substance Use: Yes Last Used Substance Other:: 05/28/2022 Preferred Language: Wolof Communication Ability: Effective 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 She is sleeping. Upon awaken her she does have reasonable strength testing right lower extremity. Sensory appears to be intact. Results & Data Vital Signs (Past 12 Hours) Vital Signs Temp Pulse Pulse Resp BP Pulse Ox O2 Del Method 11/07/22 02:59 36.4 C L 93 H 20 121/71 94 Room Air 11/07/22 02:51 95 H 11/06/22 23:37 36.7 C 84 20 100/65 93 Room Air
--- NOTE | 2022-11-07 08:43 | Magnetic Resonance Report ---
MRI OF THE LUMBAR SPINE WITHOUT CONTRAST CLINICAL HISTORY: LBP with right-sided sciatica. COMPARISON STUDY: Lumbar spine radiographs November 05, 2022. TECHNIQUE: Utilizing a 1.5 Leonie magnet and dedicated coil, multiplanar, multiecho imaging of the [facility] spine was performed without IV contrast. FINDINGS: For purposes of numbering on this exam, the L5-S1 disc space is assigned to axial image 28 of 30. Ali gnment of the lumbar spine is anatomic. Vertebral body heights are maintained. There is no marrow keyur ma or marrow placement. The conus terminates at the lower T12 level. Paravertebral soft tissues are u nremarkable. There is a left paracentral disc protrusion at T11-T12. This likely results in mild to m oderate narrowing of the left lateral recess. L1-2: The central canal and neural foramen are patent. There is moderate facet arthrosis. L2-3: There is mild disc space narrowing. There is moderate facet arthrosis. There is mild narrowing of the central canal and lateral recesses. There is mild bilateral neural foraminal stenosis. L3-4: There is moderate facet arthrosis. Central canal is patent. There is mild bilateral neural fora teresa stenosis. L4-5: There is moderate facet arthrosis. There is a tiny central disc protrusion. Central canal is pa tent. Neural foramen are patent. L5-S1: There is moderate facet arthrosis. Central canal and neural foramen are patent. IMPRESSION: 1. Moderate multilevel facet arthrosis and mild degenerative disc disease within the lumbar spine. 2. No severe central canal stenosis. Mild central canal narrowing at L2-L3. 3. Mild multilevel neural foraminal stenosis, as above. 4. No lumbar spine fracture. ACT 112: Negative or not required by law. Electronically signed by: Jasbir Chirinos M.D. 11/07/2022 8:41 AM
[2022-11-07] MEDS: DOXYCYCLINE HYCLATE 100 MG CAP PO SCH ×2 (08:54→20:26)
[2022-11-07] MEDS: CHOLECALCIFEROL 1,000 UNITS 25 MCG TAB PO SCH (10:05)
[2022-11-07] MEDS: HEPARIN SODIUM/DEXTROSE 25,000 UNITS/500 ML BAG IV SCH (11:33)
[2022-11-07] MEDS ORDERED: MoRPHine SULFATE 4 MG/ML 1 ML CARP\\VIAL IV PRN (12:41)
--- NOTE | 2022-11-07 12:42 | Hospitalist Progress Note ---
Date of Service November 07, 2022 Assessment & Plan (1) Acute pulmonary embolism with acute cor pulmonale: Plan: Presented with right leg pain and SOB. Found to have DVT and PE. Declined CTA chest due to fear of pricking for contrast and hence got NM pulmonary perfusion scan- results as below. NM pulmonary perfusion 11/06 - Numerous segmental perfusion defects are noted within the lungs which are moderate to large, and wedge-shaped in morphology. - IMPRESSION: High probability for pulmonary embolus. US LE 11/05 1. In the right lower extremity there is occlusive thrombus within the popliteal vein, posterior tibial vein, and peroneal vein. 2. Superficial thrombus within the right gastrocnemius vein. 3. Left lower extremity superficial thrombus within the gastrocnemius vein. D dimer- [id number]. Trop mildly elevated on admission and now normal Echo pending 1st episode of VTE. Denies any personal or family h/o clotting issues. States she has been mostly sedentary for the past month which is likely the reason of h er DVT and PE. Declines any contraceptive or hormonal. Denies any surgery or prolonged travel. She is however not uptodate on age appropriate cancer screening and recommended to follow up with PCP for mammogram and cervical cancer screening She is already on heparin drip and hence hypercoag work up can not be done. Recommended f/u with PCP for mammo/pap and hypercoag work up once off of anticoagulation Plan: - Continue heparin drip. If unable to lab draw due to patient's extreme fear of needle prick, we will change to lovenox. - Change to eliquis at discharge. Copay $0 on birch check. (2) Acute deep vein thrombosis (DVT) of right lower extremity: Plan: Plan as above (3) Lyme disease: Plan: S/p 2 weeks of doxycycline. (4) Low back pain with sciatica: Plan: CT lumbar spine and MRI lumbar spine reviewed. Seen by Dr. Lebron. No surgical intervention recommended. Continue pain management, physical therapy. Per orthopedics, if she continues to have sciatic pain after results and offer DVT, interventional pain management would be warranted (5) Hepatitis C virus infection: Plan: Mild elevated transaminases. Patient was on sofosbuvir-velpatasvir but stopped taking, unable to specify when she stopped taking. Counseled and reinforced the need to be compliant with her medication to ensure cure of Hep C, lest it might progress to cirrhosis of liver- recommended to follow-up with the outreach program from where she gets the medications. (6) Polysubstance abuse: Plan: UDS positive for opiate, amphetamine, methamphetamine, marijuana however patient declines use of any other substance other than marijuana. (7) Tobacco abuse: Plan: Smokes less than half pack a day per patient. Recommended quitting. (8) Anxiety and depression: Plan: Seen by psychiatry-recommendations noted. Psych will continue to follow in- house and as outpatient. Plan DVT prophylaxis-heparin drip. Change to Eliquis at discharge Disposition-continue current level of care pending echo, and PT OT evaluation. Admission and Anticipated Discharge Date Admission Date: November 06, 2022 Subjective Patient was seen and examined at bedside. States states still has pain and stiffness in the right lower extremity. She states her pain is bad and would want iv pain medications for now. Her shortness of breath has however improved. No fever, chills, nausea or vomiting. She is asking when she can go home. Review of Systems Review of Systems: All systems reviewed & are unremarkable except as noted in Subjective Physical Exam Physical Exam: General: Lying comfortably in bed, not in acute distress, on room air HEENT: EOMI, SHELBY, MMM Chest: Clear breath sounds bilaterally, no wheezes or crackles CVS: Regular, normal heart sounds, no murmur Abdomen: Soft, non tender, not distended, normal bowel sounds Neuro: Awake, alert, oriented, conversing well. Decreased sensation on right leg compared to left Extremities: No cyanosis, clubbing. Trace RLE edema with some calf tenderness. Back: Minimal tenderness on palpation of lower back in the midline Results & Data Results & Data Vital Signs (Past 12 Hours) Vital Signs Temp Pulse Pulse Resp BP Pulse Ox O2 Del Method 11/07/22 12:09 36.4 C L 80 14 96/65 L 92 Room Air 11/07/22 08:00 99 H 11/07/22 02:59 36.4 C L 93 H 20 121/71 94 Room Air 11/07/22 02:51 95 H Laboratory Results Short CBC 11/07/22 Range/Units 06:41 WBC 10.82 H (4.8-10.8) K/ul Hgb 10.4 L (12.0-16.0) g/dl Hct 31.8 L (37.0-47.0) % Plt Count 233 (130-400) K/uL BMP 11/07/22 06:41 Sodium 135 L Potassium 4.0 Chloride 106 Carbon Dioxide 24 BUN 17 Creatinine 0.62 Glucose 110 H Calcium 8.8 Diagnostic Findings Lumbar Spine MRI 11/06/22 13:02 MRI OF THE LUMBAR SPINE WITHOUT CONTRAST CLINICAL HISTORY: LBP with right-sided sciatica. COMPARISON STUDY: Lumbar spine radiographs November 05, 2022. TECHNIQUE: Utilizing a 1.5 Leonie magnet and dedicated coil, multiplanar, multiecho imaging of the lumbar spine was performed without IV contrast. FINDINGS: For purposes of numbering on this exam, the L5-S1 disc space is assigned to axial image 28 of 30. Alignment of the lumbar spine is anatomic. Vertebral body heights are maintained. There is no marrow edema or marrow placement. The conus terminates at the lower T12 level. Paravertebral soft tissues are unremarkable. There is a left paracentral disc protrusion at T11-T12. This likely results in mild to moderate narrowing of the left lateral recess. L1-2: The central canal and neural foramen are patent. There is moderate facet arthrosis. L2-3: There is mild disc space narrowing. There is moderate facet arthrosis. There is mild narrowing of the central canal and lateral recesses. There is mild bilateral neural foraminal stenosis. L3-4: There is moderate facet arthrosis. Central canal is patent. There is mild bilateral neural foraminal stenosis. L4-5: There is moderate facet arthrosis. There is a tiny central disc protrusion. Central canal is patent. Neural foramen are patent. L5-S1: There is moderate facet arthrosis. Central canal and neural foramen are patent. IMPRESSION: 1. Moderate multilevel facet arthrosis and mild degenerative disc disease within the lumbar spine. 2. No severe central canal stenosis. Mild central canal narrowing at L2-L3. 3. Mild multilevel neural foraminal stenosis, as above. 4. No lumbar spine fracture. ACT 112: Negative or not required by law. Electronically signed by: Jasbir Chirinos M.D. 11/07/2022 8:41 AM Medications Administered Current Inpatient Medications Acetaminophen (Acetaminophen 325 Mg Tab) 650 mg PO Q4H PRN PRN Reason: Pain Stop: 11/13/22 21:51 Last Admin: 11/07/22 03:07 Dose: 650 mg Doxycycline Hyclate (Doxycycline Hyclate 100 Mg Cap) 100 mg PO BID [facility] Stop: 11/16/22 02:25 Last Admin: 11/07/22 08:54 Dose: 100 mg Hydroxyzine HCl (Hydroxyzine Hcl 10 Mg Tab) 10 mg PO QID PRN PRN Reason: Anxiety Stop: 12/06/22 11:40 Last Admin: 11/07/22 08:54 Dose: 10 mg Heparin Sodium/Dextrose (Heparin Sodium/Dextrose) 25,000 units in 500 mls @ 32 mls/hr IV .[id number] [facility]; Protocol Stop: 12/06/22 02:25 Last Admin: 11/07/22 11:33 Dose: 1,600 units/hr, 32 mls/hr Lorazepam (Lorazepam 2 Mg/1 Ml Vial) 0.25 mg IV Q4H PRN PRN Reason: Anxiety/Agitation Stop: 12/06/22 02:25 Last Admin: 11/06/22 04:32 Dose: 0.25 mg Morphine Sulfate (Morphine Sulfate 4 Mg/Ml 1 Ml Carp\Vial) 3 mg IV Q3H PRN PRN Reason: Pain Stop: 11/20/22 02:25 Last Admin: 11/07/22 10:02 Dose: 3 mg Nitroglycerin (Nitroglycerin Sl 0.4 Mg/Tab Tab) 0.4 mg SL Q5M PRN PRN Reason: Chest Pain Stop: 12/06/22 02:25 Ondansetron HCl (Ondansetron Inj 2 Mg/Ml 2 Ml Vial) 4 mg IV Q6H PRN PRN Reason: Nausea Stop: 12/06/22 02:25 Last Admin: 11/06/22 04:23 Dose: 4 mg Vitamin D (Cholecalciferol 1,000 Units 25 Mcg Tab) 1,000 units PO QAM [facility] Stop: 12/06/22 08:59 Last Admin: 11/07/22 10:05 Dose: 1,000 units
[2022-11-07] MEDS: oxyCODONE HCL IR 5 MG TAB (IMMEDIATE RELEASE) PO PRN ×2 (18:12→23:11)
--- NOTE | 2022-11-07 18:51 | Electrocardiogram Report ---
Test Reason : Blood Pressure : / mmHG Vent. Rate : 103 BPM Atrial Rate : 103 BPM P-R Int : 160 ms QRS Dur : 082 ms QT Int : 374 ms P-R-T Axes : 061 -39 055 degrees QTc Int : 489 ms Sinus tachycardia Left axis deviation T wave abnormality, consider anterior ischemia Abnormal ECG When compared with ECG of 27-NOV-2010 19:28, T wave inversion now evident in Anterior leads QT has lengthened Confirmed by Anshu Capellan ([id number]) on 11/07/2022 6:50:45 PM Referred By: REFERRED SELF Confirmed By:Milton Capellan
[2022-11-08] MEDS: HEPARIN SODIUM/DEXTROSE 25,000 UNITS/500 ML BAG IV SCH (02:46)
[2022-11-08 06:06] LABS: Hematocrit (blood only) 34.4 % (37.0-47.0); Hemoglobin 11.1 g/dl (12.0-16.0); Mean Corpuscular Hemoglobin 27.8 pg (25.0-34.0); Mean Corpuscular Hgb Conc 32.3 g/dL (32.0-36.0); Mean Platelet Volume 11.3 fL (9.4-12.4); Platelet Count 243 K/uL (130-400); RDW Coefficient of Variation 16.4 % (11.5-14.5); RDW Standard Deviation 50.7 fL (36.4-46.3); White Blood Count 9.18 K/ul (4.8-10.8)
[2022-11-08 06:20] LABS: BUN Creatinine Ratio 27.7 (10-20); Calcium 8.6 mg/dl (8.6-10.3); Est GFR (African American) 124.3 ml/min; Est GFR (Non-African American) 107.2 ml/min; Potassium 4.1 mmol/L (3.5-5.1)
[2022-11-08 06:52] LABS: Partial Thromboplastin Ratio 1.9
[2022-11-08] MEDS: oxyCODONE HCL IR 5 MG TAB (IMMEDIATE RELEASE) PO PRN (07:46)
[2022-11-08] MEDS: DOXYCYCLINE HYCLATE 100 MG CAP PO SCH (07:47)
[2022-11-08] MEDS: CHOLECALCIFEROL 1,000 UNITS 25 MCG TAB PO SCH (07:47)
[2022-11-08] MEDS: ONDANSETRON INJ 2 MG/ML 2 ML VIAL IV PRN (08:17)
[2022-11-08] MEDS ORDERED: APIXABAN 5 MG TABLET PO SCH (09:00)
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
[2022-11-10 16:53] LABS: Amphetamine Urine, Confirm 12988 ng/mL (<250); Codeine Urine NEGATIVE ng/mL (<50); Hydrocodone Urine NEGATIVE ng/mL (<50); Hydromor Urine NEGATIVE ng/mL (<50); MDA negative; MDEA negative; MDMA (Ecstasy) Urine, Confirm negative; Marijuana Quant, GCMS Urine 282 ng/mL (<5); Methamphetamine, Ur Confirm >15000 ng/mL (<250); Morphine Urine 6570 ng/mL (<50); Norhydrocodone Conf Ur NEGATIVE ng/mL (<50); Noroxycodone Urine NEGATIVE ng/mL (<50); Oxycodone Urine NEGATIVE ng/mL (<50); Oxymorph Urine NEGATIVE ng/mL (<50)
[2022-11-15] MEDS ORDERED: APIXABAN 5 MG TABLET PO SCH (09:00)
== END 2022-11-08 14:45 | disposition home or self-care (01) | DRG 175 ==
LOC: 2W 17:40 → ED 17:40 → SUATTDRO 22:25 → 2W 11-06 01:58 → SUATTDRO 11-06 02:44

== ENCOUNTER 2022-12-10 07:25 | Observation (INO) ==
[2022-12-10] MEDS ORDERED: LORazepam 1 MG TAB SL STA (07:55)
[2022-12-10] MEDS ORDERED: KETOROLAC TROMETHAMINE 15 MG/ML VIAL IV STA (07:57)
[2022-12-10] MEDS ORDERED: ONDANSETRON INJ 2 MG/ML 2 ML VIAL IV STA (07:57)
[2022-12-10] MEDS ORDERED: MoRPHine SULFATE 10 MG/ML CARP/VIAL IV STA (07:57)
--- NOTE | 2022-12-10 08:02 | Emergency Department Note ---
Impression & Plan Right leg pain, Sciatica, Foot-drop, Falling ED Provider Note NAME: SANDRO DOWNS AGE: 47 SEX: F : 1975 ARRIVES VIA: Walk-In INFORMANT: [Patient] ED PROVIDER(S): [Pedro Luis Higuera MD] CHIEF COMPLAINT: Right leg pain HISTORY OF PRESENT ILLNESS: The patient is a 47-year-old female presents to the ER with ongoing issues with her right leg. The patient was in our hospital last month and diagnosed with bilateral DVTs and pulmonary emboli. She is currently on Eliquis. The patient states that she is back today because of increasing pain in the right leg over the last week. There is a burning sensation in the back of the leg that radiates down to the foot. It has become unbearable. She is using gabapentin with no relief. The patient states that the right leg is weak and she has a foot drop. She has fallen twice because of the leg. The patient has not had cough or congestion or fever. She has not had vomiting or diarrhea. The patient has not had urinary complaints. The patient states that she had an MRI last month and there was nothing surgical found. She has an appoint with pain management because of her right leg discomfort but that is not until next month. She states that she cannot continue to function like this. PMHx/PSHx: See Below SOCIAL HISTORY: See Below. PHYSICAL EXAM: GENERAL: Patient is in moderate distress from pain, anxious HEENT: No acute trauma, normocephalic atraumatic, mucous membranes moist, no nasal congestion. NECK: No stridor, no adenopathy, no meningismus, trachea is midline. LUNGS: Clear to auscultation bilaterally, no wheeze, no rhonchi, breath sounds equal. HEART: Subtle systolic murmur, regular rate and rhythm ABDOMEN: Soft, nontender, bowel sounds positive, no peritonitis. EXTREMITIES: No cyanosis or edema, full range of motion of all the joints without pain or difficulty, no signs for acute trauma. NEUROLOGIC: Oriented x 3. The patient does not have any reflexes in the patella or Achilles on either leg. She has excellent plantar strength on the right but cannot dorsiflex the big toe or foot. No right leg erythema that would indicate cellulitis. SKIN: No rash, no jaundice, no diaphoresis. DIFFERENTIAL DIAGNOSIS: Sciatica, lumbar disc disease, hematoma, worsening DVT, cellulitis, electrolyte imbalance, among others. EMERGENCY DEPARTMENT COURSE/PROCEDURES: Prior/Outside records reviewed: Previous discharge summary. Previous lumbar MRI report. MEDICAL DECISION MAKING: There is no leukocytosis or concerning anemia. There is a normal platelet count. No renal failure or significant electrolyte abnormality. The patient ap peared to be in a euthyroid state. COVID test returned negative. Lumbar spine MRI did show findings of stenosis and arthritis, no focal acute herniation seen. The patient's MRI looks similar to the MRI from a month ago. Right lower extremity venous ultrasound did not show DVT, the clot had resolved. On exam, the patient had no dorsiflexion of her right foot or toe. She was not toxic or febrile. She seemed in quite a bit of discomfort. Patient received sublingual Ativan to help with her anxiety and to help her get through an MRI. She was given IV morphine, IV Zofran, IV saline and IV D ecadron. She received IV Toradol. The patient's pain is out of control despite outpatient treatment. She is in no condition for discharge. I did speak with her about her findings, I did speak with case management, the on-call hospitalist was consulted. A pain management consult while here in the hospital may be warranted. DISPOSITION: Patient's presentation and findings warrant a hospital stay. Past Med/Surg History Medical History ADHD Anxiety and depression Encounter for insertion of copper IUD Hepatitis C virus infection History of methamphetamine abuse Lyme disease Post traumatic stress disorder (PTSD) Sciatica Tobacco abuse Surgical History (Updated 12/10/22 @ 11:32 by Windy Perez PA-C) Hx of appendectomy Family History (Updated 12/10/22 @ 11:31 by Windy Perez PA-C) Mother Hypertension Father Hypertension Other Diabetes Heart disease Lung disease Social History Smoking Status: Current every day smoker Second Hand Exposure: Yes; Do You Dip or Chew Tobacco: No; Hx Alcohol Use: No Hx Substance Use: Yes Last Used Substance Other:: 05/28/2022 Preferred Language: Irish Communication Ability: Effective First Aid Attendant Required: No Beliefs That Will Affect Care: None marital status: Current Living Situation: Alone current occupational status: unemployed Feels Safe at Home: Yes Assistive Devices: Cane Allergies Allergies Allergy/AdvReac Type Severity Reaction Status Date / Time No Known Allergies Allergy Verified 11/05/22 19:25 Home Meds Home Medications Medication Instructions Recorded Confirmed cholecalciferol (vitamin D3) 25 25 mcg PO QAM 11/05/22 12/10/22 mcg (1,000 unit) tablet doxycycline hyclate 100 mg capsule 0 mg PO UD 11/05/22 12/10/22 sofosbuvir 400 mg-velpatasvir 100 0 tab PO UD 11/05/22 12/10/22 mg tablet Medical Marijuana See Rx Instructions .Route .COMPLEX 12/10/22 12/10/22 Previous Rx's Medication Instructions Recorded apixaban 5 mg (74 tabs) tablets in 5 mg PO BID #74 ea 11/06/22 a dose pack (Eliquis) Results & Data (ED) Vital Signs Vital Signs - 24 hr 12/10/22 07:31 12/10/22 08:35 12/10/22 09:05 Temperature 36.3 C L Temperature Source Temporal Artery Scan Pulse Rate 84 Pulse Rate [Apical] 65 76 Pulse Rhythm Regular Pulse Strength Normal Respiratory Rate 24 18 14 Respiratory Effort / Characteristics Non-Labored Spontaneous Respiratory Depth Normal Respiratory Pattern Regular Blood Pressure 103/69 Blood Pressure [Left Arm] 107/67 108/71 Blood Pressure Mean 80 Blood Pressure Mean [Left Arm] 80 83 Blood Pressure Position Sitting Pulse Oximetry 98 99 99 Oxygen Delivery Method Room Air Room Air Room Air Oxygen Flow Rate Sepsis Recent Fever Within 48 Hours No Sepsis New/Unexplained Change in Mental Status No Sepsis Action Taken by Nursing No Action Required 12/10/22 10:39 12/10/22 12:00 12/10/22 14:00 Temperature 37 C Temperature Source Oral Pulse Rate Pulse Rate [Apical] 69 65 Pulse Rhythm Pulse Strength Respiratory Rate 14 12 12 Respiratory Effort / Characteristics Respiratory Depth Normal Respiratory Pattern Blood Pressure Blood Pressure [Left Arm] 106/64 125/69 Blood Pressure Mean Blood Pressure Mean [Left Arm] 78 87 Blood Pressure Position Pulse Oximetry 100 100 100 Oxygen Delivery Method Nasal Cannula Nasal Cannula Oxygen Flow Rate 2 2 Sepsis Recent Fever Within 48 Hours Sepsis New/Unexplained Change in Mental Status Sepsis Action Taken by Long Term Medications Current Medication List: was personally reviewed by me Laboratory Data Attestation: I reviewed the patient's lab results. 12/10/22 08:35 12/10/22 08:35 Lab Results 12/10/22 12/10/22 12/10/22 Range/Units 08:35 08:35 08:35 WBC 6.36 (4.8-10.8) K/ul RBC 4.42 (4.20-5.40) M/uL Hgb 12.1 (12.0-16.0) g/dl Hct 37.2 (37.0-47.0) % MCV 84.2 (80.0-100.0) fL MCH 27.4 (25.0-34.0) pg MCHC 32.5 (32.0-36.0) g/dL RDW Std Deviation 52.6 H (36.4-46.3) fL RDW Coeff of Dino 17.0 H (11.5-14.5) % Plt Count 308 (130-400) K/uL MPV 11.2 (9.4-12.4) fL Immature Gran % (Auto) 1.3 % Neut % (Auto) 46.6 % Lymph % (Auto) 32.7 % Dukes % (Auto) 11.2 % Eos % (Auto) 7.4 % Baso % (Auto) 0.8 % Neut # (Auto) 2.97 (1.40-6.50) K/uL Lymph # (Auto) 2.08 (1.2-3.4) K/uL Dukes # (Auto) 0.71 H (0.11-0.59) K/uL Eos # (Auto) 0.47 (0-0.50) K/uL Baso # (Auto) 0.05 (0-0.2) K/uL Immature Gran # (Auto) 0.08 (0.01-0.20) K/uL Sodium 138 (136-145) mmol/L Potassium 3.9 (3.5-5.1) mmol/L Chloride 107 (98-107) mmol/L Carbon Dioxide 23 (21-32) mmol/L Anion Gap 8 (3-11) BUN 7 (6-23) mg/dl Creatinine 0.69 (0.6-1.2) mg/dl Est Cr Clr Drug Dosing 134.1 ml/min Est GFR ( Amer) 121.8 ml/min Est GFR (Non-Af Amer) 105.1 ml/min BUN/Creatinine Ratio 10.1 (10-20) Glucose 96 (70-99(Fasting)) mg/dl Calcium 9.6 (8.6-10.3) mg/dl Magnesium 1.8 (1.7-2.4) mg/dl B-Natriuretic Peptide 154 H (0-100) pg/ml TSH (0.300-4.500) uIu/ml SARS-CoV-2, RNA, NAAT (NEGATIVE) 12/10/22 12/10/22 Range/Units 08:53 12:35 WBC (4.8-10.8) K/ul RBC (4.20-5.40) M/uL Hgb (12.0-16.0) g/dl Hct (37.0-47.0) % MCV (80.0-100.0) fL MCH (25.0-34.0) pg MCHC (32.0-36.0) g/dL RDW Std Deviation (36.4-46.3) fL RDW Coeff of Dino (11.5-14.5) % Plt Count (130-400) K/uL MPV (9.4-12.4) fL Immature Gran % (Auto) % Neut % (Auto) % Lymph % (Auto) % Dukes % (Auto) % Eos % (Auto) % Baso % (Auto) % Neut # (Auto) (1.40-6.50) K/uL Lymph # (Auto) (1.2-3.4) K/uL Dukes # (Auto) (0.11-0.59) K/uL Eos # (Auto) (0-0.50) K/uL Baso # (Auto) (0-0.2) K/uL Immature Gran # (Auto) (0.01-0.20) K/uL Sodium (136-145) mmol/L Potassium (3.5-5.1) mmol/L Chloride (98-107) mmol/L Carbon Dioxide (21-32) mmol/L Anion Gap (3-11) BUN (6-23) mg/dl Creatinine (0.6-1.2) mg/dl Est Cr Clr Drug Dosing ml/min Est GFR ( Amer) ml/min Est GFR (Non-Af Amer) ml/min BUN/Creatinine Ratio (10-20) Glucose (70-99(Fasting)) mg/dl Calcium (8.6-10.3) mg/dl Magnesium (1.7-2.4) mg/dl B-Natriuretic Peptide (0-100) pg/ml TSH 2.676 (0.300-4.500) uIu/ml SARS-CoV-2, RNA, NAAT NEGATIVE (NEGATIVE) Administered Medications Discontinued Medications Dexamethasone Sodium Phosphate (DexamethasonePf 10 Mg/Ml Vial) 6 mg IV NOW ONE Stop: 12/10/22 11:15 Last Admin: 12/10/22 12:33 Dose: 6 mg Documented By: EDGAR Sodium Chloride (Nss 1000ml) 500 mls @ 999 mls/hr IV .Q31M ONE Stop: 12/10/22 11:44 Last Admin: 12/10/22 12:32 Dose: 999 mls/hr Documented By: EDGAR Ketorolac Tromethamine (Ketorolac Tromethamine 15 Mg/Ml Vial) 15 mg IV NOW STA Stop: 12/10/22 07:58 Last Admin: 12/10/22 08:30 Dose: 15 mg Documented By: TONI Lorazepam (Lorazepam 1 Mg Tab) 2 mg SL NOW STA Stop: 12/10/22 07:56 Last Admin: 12/10/22 08:03 Dose: 2 mg Documented By: TONI Morphine Sulfate (Morphine Sulfate 10 Mg/Ml Carp/Vial) 6 mg IV NOW STA Stop: 12/10/22 07:58 Last Admin: 12/10/22 08:30 Dose: 6 mg Documented By: TONI Ondansetron HCl (Ondansetron Inj 2 Mg/Ml 2 Ml Vial) 4 mg IV NOW STA Stop: 12/10/22 07:58 Last Admin: 12/10/22 08:30 Dose: 4 mg Documented By: TONI Imaging Data Radiologist's Impression: Lumbar Spine MRI 12/10/22 07:55 MRI OF THE LUMBAR SPINE WITHOUT CONTRAST CLINICAL HISTORY: Right leg weak, foot drop, falling. COMPARISON STUDY: Lumbar spine MRI November 06, 2022. TECHNIQUE: Utilizing a 1.5 Leonie magnet and dedicated coil, multiplanar, multie cho imaging of the lumbar spine was performed without IV contrast. FINDINGS: For purposes of numbering on this exam, the L5-S1 disc space is assigned to axial image 3 of 6 of the lower axial sequences. Alignment of the lumbar spine is anatomic. Vertebral body heights are maintained. No marrow edema or replacement is present. There is no intracanalicular mass or fluid collection. The conus terminates at the T12-L1 level. Paravertebral soft tissues are unremarkable. Note is again made of a left paracentral disc protrusion at T11-T 12. This is unchanged. L1-2: The central canal is patent. There is mild facet arthrosis. The neural foramen are patent. L2-3: There is mild disc space narrowing with disc bulge. There is mild central canal narrowing. Moderate facet arthrosis is present. There is mild bilateral neural foraminal stenosis, similar to previous MRI. L3-4: Moderate facet arthrosis is present. There is mild disc bulge with a small central annular tear. Central canal is patent. There is mild bilateral neural foraminal stenosis, similar to previous MRI. L4-5: There is mild disc bulge with a small annular tear but there is moderate facet arthrosis. The central canal is patent. There is mild bilateral neural foraminal stenosis. L5-S1: Moderate facet arthrosis is present. Central canal and neural foramen are patent. IMPRESSION: 1. No acute process within the lumbar spine by MRI. No significant change since MRI of November 06, 2022. 2. Moderate multilevel facet arthrosis and mild degenerative disc disease within the lumbar spine. Multilevel disc bulges with small annular tears. Mild central canal narrowing at L2-L3. No severe central canal stenosis. 3. Mild multilevel neural foraminal stenosis. ACT 112: Negative or not required by law. Electronically signed by: Jasbir Chirinos M.D. 12/10/2022 10:27 AM Venous Doppler Study 12/10/22 07:55 ULTRASOUND RIGHT LOWER EXTREMITY VENOUS CLINICAL HISTORY: Right leg pain. Recent deep venous thrombosis. COMPARISON STUDY: Bilateral lower extremity venous ultrasound dated 11/05/2022. TECHNIQUE: Real-time, grayscale, and color Doppler sonography of the deep veins of the right lower extremity was performed from the inguinal crease to the calf. Compression and augmentation were utilized. FINDINGS: There is no sonographic evidence of deep venous thrombosis identified in the right lower extremity. The common femoral, superficial femoral, and po pliteal veins are patent and normally compressible. The greater saphenous vein and the profunda femoris vein at the junction with the common femoral vein are clear. The visualized calf veins are patent. IMPRESSION: There is no sonographic evidence of deep venous thrombosis identified in the right lower extremity. Deep venous thrombosis in the right calf seen on 11/05/2022 is no longer identified. ACT 112: Negative or not required by law. Electronically signed by: Pedro Luis Davison M.D. 12/10/2022 10:49 AM Discharge Plan Visit Data Chief Complaint: Leg Injury/Pain Stated Complaint: BLOOD CLOTS IN LEGS,LUNGS,TROUBLE BREATHING ED Provider: Pedro Luis Higuera Discharge Problem: Right leg pain, Sciatica, Foot-drop, Falling Patient Disposition: Admitted As Inpatient Condition: Fair Forms Stand Alone Forms: [facility] Prescriptions Prescriptions: No Action cholecalciferol (vitamin D3) 25 mcg (1,000 unit) tablet 25 mcg PO QAM doxycycline hyclate 100 mg capsule 0 mg PO UD Rx Instructions: pt can't find her medication. sofosbuvir-velpatasvir 400-100 mg tablet 0 tab PO UD Rx Instructions: Per pt she isn't currently taking because it makes her extremely ill. Eliquis 5 mg (74 tabs) tablets,dose pack 5 mg PO BID Qty: 74 0RF Rx Instructions: 2 tab twice daily for 1 week, then 1 tab twice daily Medical Marijuana See Rx Instructions .ROUTE .COMPLEX Rx Instructions: as directed Referrals Referrals: Osmin Green MD [Primary Care Provider] - Sciatica Qualifiers: Laterality: right Qualified Code(s): M54.31 - Sciatica, right side Foot-drop Qualifiers: Laterality: right Qualified Code(s): M21.371 - Foot drop, right foot
[2022-12-10 08:58] LABS: Basophils # (auto) 0.05 K/uL (0-0.2); Basophils % (auto) 0.8 %; Eosinophils # (auto) 0.47 K/uL (0-0.50); Eosinophils % (auto) 7.4 %; Hematocrit (blood only) 37.2 % (37.0-47.0); Hemoglobin 12.1 g/dl (12.0-16.0); Immature Granulocytes # (auto) 0.08 K/uL (0.01-0.20); Immature Granulocytes % (auto) 1.3 %; Lymphocytes # (auto) 2.08 K/uL (1.2-3.4); Lymphocytes % (auto) 32.7 %; Mean Corpuscular Hemoglobin 27.4 pg (25.0-34.0); Mean Corpuscular Hgb Conc 32.5 g/dL (32.0-36.0); Mean Corpuscular Volume 84.2 fL (80.0-100.0); Mean Platelet Volume 11.2 fL (9.4-12.4); Monocytes # (auto) 0.71 K/uL (0.11-0.59); Monocytes % (auto) 11.2 %; Neutrophils # (auto) 2.97 K/uL (1.40-6.50); Neutrophils % (auto) 46.6 %; Platelet Count 308 K/uL (130-400); RDW Standard Deviation 52.6 fL (36.4-46.3); Red Blood Count 4.42 M/uL (4.20-5.40); White Blood Count 6.36 K/ul (4.8-10.8)
[2022-12-10 09:15] LABS: Magnesium 1.8 mg/dl (1.7-2.4)
[2022-12-10 10:06] LABS: BUN Creatinine Ratio 10.1 (10-20); Calcium 9.6 mg/dl (8.6-10.3); Creatinine Clr Calc Pharmacy 134.1 ml/min; Est GFR (African American) 121.8 ml/min; Est GFR (Non-African American) 105.1 ml/min; Potassium 3.9 mmol/L (3.5-5.1)
--- NOTE | 2022-12-10 10:29 | Magnetic Resonance Report ---
MRI OF THE LUMBAR SPINE WITHOUT CONTRAST CLINICAL HISTORY: Right leg weak, foot drop, falling. COMPARISON STUDY: Lumbar spine MRI November 06, 2022. TECHNIQUE: Utilizing a 1.5 Leonie magnet and dedicated coil, multiplanar, multiecho imaging of the [facility] spine was performed without IV contrast. FINDINGS: For purposes of numbering on this exam, the L5-S1 disc space is assigned to axial image 3 of 6 of the lower axial sequences. Alignment of the lumbar spine is anatomic. Vertebral body heights are maintai shannan. No marrow edema or replacement is present. There is no intracanalicular mass or fluid collection . The conus terminates at the T12-L1 level. Paravertebral soft tissues are unremarkable. Note is agai n made of a left paracentral disc protrusion at T11-T12. This is unchanged. L1-2: The central canal is patent. There is mild facet arthrosis. The neural foramen are patent. L2-3: There is mild disc space narrowing with disc bulge. There is mild central canal narrowing. Mode rate facet arthrosis is present. There is mild bilateral neural foraminal stenosis, similar to previo us MRI. L3-4: Moderate facet arthrosis is present. There is mild disc bulge with a small central annular tear . Central canal is patent. There is mild bilateral neural foraminal stenosis, similar to previous MRI . L4-5: There is mild disc bulge with a small annular tear but there is moderate facet arthrosis. The c entral canal is patent. There is mild bilateral neural foraminal stenosis. L5-S1: Moderate facet arthrosis is present. Central canal and neural foramen are patent. IMPRESSION: 1. No acute process within the lumbar spine by MRI. No significant change since MRI of November 06, 2022. 2. Moderate multilevel facet arthrosis and mild degenerative disc disease within the lumbar spine. Mu ltilevel disc bulges with small annular tears. Mild central canal narrowing at L2-L3. No severe centr al canal stenosis. 3. Mild multilevel neural foraminal stenosis. ACT 112: Negative or not required by law. Electronically signed by: Jasbir Chirinos M.D. 12/10/2022 10:27 AM
--- NOTE | 2022-12-10 10:51 | Ultrasound Report ---
ULTRASOUND RIGHT LOWER EXTREMITY VENOUS CLINICAL HISTORY: Right leg pain. Recent deep venous thrombosis. COMPARISON STUDY: Bilateral lower extremity venous ultrasound dated 11/05/2022. TECHNIQUE: Real-time, grayscale, and color Doppler sonography of the deep veins of the right lower ex tremity was performed from the inguinal crease to the calf. Compression and augmentation were utilize d. FINDINGS: There is no sonographic evidence of deep venous thrombosis identified in the right lower ex tremity. The common femoral, superficial femoral, and popliteal veins are patent and normally indu sible. The greater saphenous vein and the profunda femoris vein at the junction with the common femor al vein are clear. The visualized calf veins are patent. IMPRESSION: There is no sonographic evidence of deep venous thrombosis identified in the right lower extremity. Deep venous thrombosis in the right calf seen on 11/05/2022 is no longer identified. ACT 112: Negative or not required by law. Electronically signed by: Pedro Luis Davison M.D. 12/10/2022 10:49 AM
[2022-12-10] MEDS ORDERED: SODIUM CHLORIDE 0.9% 1000ML 500 ML IV ONE (11:14)
[2022-12-10] MEDS ORDERED: dexAMETHasone**PF** 10 MG/ML VIAL IV ONE (11:14)
--- NOTE | 2022-12-10 11:34 | History & Physical Report ---
Date of Service December 10, 2022 Assessment & Plan (1) Intractable pain: (2) Fall: (3) Right foot drop: Plan: -Admit to [facility] -Consult orthospine, Dr. Lebron - MRI lower back reviewed personally without acute findings--- moderate multilevel facet arthrosis and mild degenerative disc disease within the lumbar spine, multilevel disc bulges with small annular tears, mild central canal narrowing at L2-L3. No severe central canal stenosis. Mild multilevel neural foraminal stenosis. -Continue on gabapentin 600 mg, given 1 dose now and schedule 3 times daily -will allow oxycodone 5 mg twice daily as needed for pain, avoid excessive narcotic use with abuse history as per HPI, bowel regimen ordered -Check urine drug tox screen: Patient admits to medical marijuana use 2-3 times per day, has been clean off amphetamines since May 2022 -PT/OT consults -Fall precautions (4) Anxiety and depression: (5) Post traumatic stress disorder (PTSD): Plan: -Patient denies SI and HI, does not follow with psychiatry routinely, consider addition of antidepressant such as Cymbalta -Has trialed Paxil, Prozac, Wellbutrin without effect in the past, as per HPI- had suicidal ideations on Paxil as a teenager with 6 attempts. -Encourage outpatient psych follow-up, counselor/therapist recommended -Continue gabapentin (6) Hepatitis C virus infection: Plan: -Reports has not been taking hep C medications for some time, due to somnolence she is unable to come up with an exact timeframe, will require resumption of these medications upon discharge home (7) Acute deep vein thrombosis (DVT) of right lower extremity: (8) Acute pulmonary embolism with acute cor pulmonale: Plan: -Ultrasound of the right lower extremity shows resolved DVT-this was first instance of DVT/PE, scheduled to be on Eliquis x3 months -Patient is anticoagulated on Eliquis, hold for now in case any needs for surgical procedure DVT PPx - teds, scds, holding eliquis in case needs for surgical procedure CODE: Full code Dispo: From home, likely to remain in the hospital x 1-2 days, observation A total of 76 minutes were spent with greater than 50% of that time face to face with the patient, personally reviewing all current laboratories, imaging studies, past medication reconciliation, outpatient chart review, and discussion with specialists to collaborate care for the patient with attending. Please see attending documentation for corrections and/or additions. History of Present Illness Chief Complaint: RLE pain Primary Care Provider: Osmin Green MD This is a 47-year-old female with PMHx of hepatitis C, history of drug use with methamphetamine, sober since 05/28/2022, obesity with BMI of 32, tobacco use disorder, marijuana use, depression, Lyme disease. She is lethargic during the time of my exam due to being medicated for MRI which makes history difficult to obtain. Denied any swelling or skin erythema. who presents to the hospital with acute worsening right lower extremity pain for the past month. Pain extends from the thigh down to the foot.It feels like she is being stung by bees and or electricity all the time, and due to uncontrolled pain and not being able to sleep, presents here today. She has fallen twice due to her foot giving out on her, denies any presyncopal symptoms or LOC. She denies hitting her head. Pain is worsens with putting weight on and walking. Denied any lower back pain. No bowel or bladder incontinence. The foot drop has been present since her previous hospitalization, so at least 3.5 weeks, and she has been using a walker within her home recently to help prevent falls. She has a pain management appointment in December to establish care. She has been clean from substance abuse since May 2022 when she was using methamphetamine, admits to using ROS marijuana 2-3x per day for pain with medical marijuana cards, gabapentin 100 mg TID which she says does not help. Here in the ER, pt recieved MS IV 6 mg, ativan 2 mg po for the back MRI, toradol 15 mg IV, and decadron 6 mg IV. Pt has been taking Eliquis as prescribed, she reports having blood on toilet paper 2 days ago and states that she has a hemorrhoid which has been there for years. She thinks that this is bleeding more easily since being on blood thinner within the past month. She denies any lightheadedness, dizziness, appearance of looking pale or large blood loss. Pt was previously suicidal on paxil when she was a teenager, trialed prozan and wellbutrin but didn't like the way it made her feel. She is not currently on any kind of antidepressant and does not follow with psychiatry. She is crying at times, depressed, saying at one point her pain is so bad that she wishes she were . Pt denies suicidal ideations or homicidal ideations currently. Denies having any plans for suicidal attempts. Pt lives at home alone. Allergies Allergy/AdvReac Type Severity Reaction Status Date / Time No Known Allergies Allergy Verified 11/05/22 19:25 Home Medications Medication Instructions Recorded Confirmed Type cholecalciferol (vitamin D3) 25 25 mcg PO QAM 11/05/22 12/10/22 History mcg (1,000 unit) tablet doxycycline hyclate 100 mg capsule 0 mg PO UD 11/05/22 12/10/22 History sofosbuvir 400 mg-velpatasvir 100 0 tab PO UD 11/05/22 12/10/22 History mg tablet apixaban 5 mg (74 tabs) tablets in 5 mg PO BID #74 ea 11/06/22 12/10/22 Rx a dose pack (EliOpeepl) Medical Marijuana See Rx Instructions .Route .COMPLEX 12/10/22 12/10/22 History Past Med/Surg History Medical History ADHD Anxiety and depression Encounter for insertion of copper IUD Hepatitis C virus infection History of methamphetamine abuse Lyme disease Post traumatic stress disorder (PTSD) Sciatica Tobacco abuse Surgical History (Updated 12/10/22 @ 11:32 by Windy Perez PA-C) Hx of appendectomy Family History (Updated 12/10/22 @ 11:31 by Windy Perez PA-C) Mother Hypertension Father Hypertension Other Diabetes Heart disease Lung disease Social History Smoking Status: Current every day smoker Second Hand Exposure: Yes; Do You Dip or Chew Tobacco: No; Hx Alcohol Use: No Hx Substance Use: Yes Last Used Substance Other:: 05/28/2022 Preferred Language: Marshallese Communication Ability: Effective Grape Cutter Required: No Beliefs That Will Affect Care: None marital status: Current Living Situation: Alone current occupational status: unemployed Feels Safe at Home: Yes Assistive Devices: Cane Review of Systems Review of Systems: Constitutional: No fever, sweats or chills Eyes: No diplopia, no worsening or blurred vision ENT: normal hearing, no trouble swallowing Respiratory: No cough, sputum, dyspnea at rest or on exertion Cardiovascular: No chest pain, tightness or palpitations Abdomen: No pain, nausea, vomiting, diarrhea or constipation Musculoskeletal: RLE pain from thigh down to foot as per HPI, No joint pain, no calf pain, no redness or swelling Neurologic: No weakness, numbness/tingling, or balance problems Psychiatric: No anxiety or depression Skin: No rash or itch Physical Exam Physical Exam: General: lethargic, awakes with verbal stimuli but drifts off intermittently, no apparent distress Head: Normocephalic, atraumatic ENT: PERRL, EOMI, no pharyngeal exudate, mucous membranes moist Chest: Clear to auscultation, on 2L via NC, no adventitious breath sounds Cardiac: Regular rate and rhythm, no murmur, no JVD, normal peripheral pulses, good capillary refill Abdominal: NABS x 4 quadrants, soft, nondistended, nontender to palpation, no rebound or guarding Extremities: Normal inspection, no peripheral edema or erythema, calfs nontender to palpation Psych: Normal mood and affect Neuro: AAO x 3, strength intact bilaterally and rated 5/5, no motor deficits, speech is clear, no peripheral sensory deficits Results & Data Results & Data Vital Signs (Past 12 Hours) Vital Signs Temp Pulse Pulse Resp BP BP Pulse Ox 12/10/22 10:39 69 14 106/64 100 12/10/22 09:05 76 14 108/71 99 12/10/22 08:35 65 18 107/67 99 12/10/22 07:31 36.3 C L 84 24 103/69 98 O2 Del Method 12/10/22 10:39 12/10/22 09:05 Room Air 12/10/22 08:35 Room Air 12/10/22 07:31 Room Air Laboratory Results 12/10/22 12/10/22 12/10/22 08:53 08:35 08:35 WBC RBC Hgb Hct MCV MCH MCHC RDW Std Deviation RDW Coeff of Dino Plt Count MPV Immature Gran % (Auto) Neut % (Auto) Lymph % (Auto) [place] % (Auto) Eos % (Auto) Baso % (Auto) Neut # (Auto) Lymph # (Auto) [place] # (Auto) Eos # (Auto) Baso # (Auto) Immature Gran # (Auto) Sodium 138 Potassium 3.9 Chloride 107 Carbon Dioxide 23 Anion Gap 8 BUN 7 Creatinine 0.69 Est Cr Clr Drug Dosing 134.1 Est GFR ( Amer) 121.8 Est GFR (Non-Af Amer) 105.1 BUN/Creatinine Ratio 10.1 Glucose 96 Calcium 9.6 Magnesium 1.8 B-Natriuretic Peptide 154 H TSH 2.676 12/10/22 08:35 WBC 6.36 RBC 4.42 Hgb 12.1 Hct 37.2 MCV 84.2 MCH 27.4 MCHC 32.5 RDW Std Deviation 52.6 H RDW Coeff of Dino 17.0 H Plt Count 308 MPV 11.2 Immature Gran % (Auto) 1.3 Neut % (Auto) 46.6 Lymph % (Auto) 32.7 [place] % (Auto) 11.2 Eos % (Auto) 7.4 Baso % (Auto) 0.8 Neut # (Auto) 2.97 Lymph # (Auto) 2.08 [place] # (Auto) 0.71 H Eos # (Auto) 0.47 Baso # (Auto) 0.05 Immature Gran # (Auto) 0.08 Sodium Potassium Chloride Carbon Dioxide Anion Gap BUN Creatinine Est Cr Clr Drug Dosing Est GFR ( Amer) Est GFR (Non-Af Amer) BUN/Creatinine Ratio Glucose Calcium Magnesium B-Natriuretic Peptide TSH Diagnostic Findings Lumbar Spine MRI 12/10/22 07:55 MRI OF THE LUMBAR SPINE WITHOUT CONTRAST CLINICAL HISTORY: Right leg weak, foot drop, falling. COMPARISON STUDY: Lumbar spine MRI November 06, 2022. TECHNIQUE: Utilizing a 1.5 Leonie magnet and dedicated coil, multiplanar, multiecho imaging of the lumbar spine was performed without IV contrast. FINDINGS: For purposes of numbering on this exam, the L5-S1 disc space is assigned to axial image 3 of 6 of the lower axial sequences. Alignment of the lumbar spine is anatomic. Vertebral body heights are maintained. No marrow edema or replacement is present. There is no intracanalicular mass or fluid collection. The conus terminates at the T12-L1 level. Paravertebral soft tissues are unremarkable. Note is again made of a left paracentral disc protrusion at T11- T12. This is unchanged. L1-2: The central canal is patent. There is mild facet arthrosis. The neural foramen are patent. L2-3: There is mild disc space narrowing with disc bulge. There is mild central canal narrowing. Moderate facet arthrosis is present. There is mild bilateral neural foraminal stenosis, similar to previous MRI. L3-4: Moderate facet arthrosis is present. There is mild disc bulge with a small central annular tear. Central canal is patent. There is mild bilateral neural foraminal stenosis, similar to previous MRI. L4-5: There is mild disc bulge with a small annular tear but there is moderate facet arthrosis. The central canal is patent. There is mild bilateral neural foraminal stenosis. L5-S1: Moderate facet arthrosis is present. Central canal and neural foramen are patent. IMPRESSION: 1. No acute process within the lumbar spine by MRI. No significant change since MRI of November 06, 2022. 2. Moderate multilevel facet arthrosis and mild degenerative disc disease within the lumbar spine. Multilevel disc bulges with small annular tears. Mild central canal narrowing at L2-L3. No severe central canal stenosis. 3. Mild multilevel neural foraminal stenosis. ACT 112: Negative or not required by law. Electronically signed by: Jasbir Chirinos M.D. 12/10/2022 10:27 AM Venous Doppler Study 12/10/22 07:55 ULTRASOUND RIGHT LOWER EXTREMITY VENOUS CLINICAL HISTORY: Right leg pain. Recent deep venous thrombosis. COMPARISON STUDY: Bilateral lower extremity venous ultrasound dated 11/05/2022. TECHNIQUE: Real-time, grayscale, and color Doppler sonography of the deep veins of the right lower extremity was performed from the inguinal crease to the calf. Compression and augmentation were utilized. FINDINGS: There is no sonographic evidence of deep venous thrombosis identified in the right lower extremity. The common femoral, superficial femoral, and popliteal veins are patent and normally compressible. The greater saphenous vein and the profunda femoris vein at the junction with the common femoral vein are clear. The visualized calf veins are patent. IMPRESSION: There is no sonographic evidence of deep venous thrombosis identified in the right lower extremity. Deep venous thrombosis in the right calf seen on 11/05/2022 is no longer identified. ACT 112: Negative or not required by law. Electronically signed by: Pedro Luis Davison M.D. 12/10/2022 10:49 AM Code Status & VTE Plan Code Status Full code discussed with the patient at bedside Supervising Physician Co-Signing Physician Notes Pt is a 47 y/o F with hx of drug use (sober since per pt ), Hep C, Anxiety/Depression, DDD and recent hx of b/l DVT, PE (on eliquis) admitted for worsening R leg pain and ambulatory dysfunction. Per pt she has been having R foot drop for 1 month. She is having worsening R leg pain with tingling. Gabapentin 100mg TID is not helping. PE: Pt was slightly lethargic (from Ativan and morphine) Lungs: CTA, no wheezing or crackles Cardiac: normal S1/S2, no murmur Abd: ND, NT, soft Neuro: EOMI, PERRLA, decreased dorsal and plantar flexion of the R foot with dec reased strength, no leg swelling or erythema Psych: AAOx3 A/P: R leg pain with droop foot: -likely 2/2 L DDD - MRI L spine: Moderate multilevel facet arthrosis and mild degenerative disc disease within the lumbar spine. Multilevel disc bulges with small annular tears. Mild central canal narrowing at L2-L3. No severe central canal stenosis. - repeat RLE Doppler: no DVT -pt received decadron in the ER - will increase the Gabapentin to 600mg TID with prn oxycodone 5mg q12 - ortho consult again - PT/OT PE and DVT: -continue eliquis Hep C: -pt currently not taking Epclusa Anxiety/Depression: -was on atomoxetine -currently not on any medication -consider consulting psych if symptoms worsen Agree with A/p by Shellie Perez PA-C
[2022-12-10] MEDS ORDERED: ACETAMINOPHEN 325 MG TAB PO PRN (15:56)
[2022-12-10] MEDS ORDERED: ONDANSETRON INJ 2 MG/ML 2 ML VIAL IV PRN (15:56)
[2022-12-10] MEDS ORDERED: POLYETHYLENE (MIRALAX) 17 GM PACK PO PRN (15:56)
[2022-12-10] MEDS ORDERED: GABAPENTIN 600 MG TAB PO STA (16:07)
[2022-12-10] MEDS: SENNA 8.6 MG TAB PO SCH (16:33)
[2022-12-10 17:40] LABS: Amphetamines+Metham, Urine Neg (Neg); Barbiturates, Urine Neg (Neg); Benzodiazepine, Urine Neg (Neg); Cocaine, Urine Neg (Neg); MDMA (Ecstacy), Urine Neg (Neg); Methadone, Urine Neg (Neg); Opiate, Urine Pos (Neg); Phencyclidine, Urine Neg (Neg)
[2022-12-10] MEDS: oxyCODONE HCL IR 5 MG TAB (IMMEDIATE RELEASE) PO PRN (17:50)
[2022-12-10] MEDS ORDERED: MoRPHine SULFATE 2 MG/ML CARP IV STA (19:40)
[2022-12-10] MEDS: GABAPENTIN 600 MG TAB PO SCH (20:12)
[2022-12-11] MEDS: oxyCODONE HCL IR 5 MG TAB (IMMEDIATE RELEASE) PO PRN (07:34)
[2022-12-11] MEDS: GABAPENTIN 600 MG TAB PO SCH ×2 (07:35→13:59)
[2022-12-11] MEDS: SENNA 8.6 MG TAB PO SCH (07:36)
[2022-12-11] MEDS ORDERED: oxyCODONE HCL IR 5 MG TAB (IMMEDIATE RELEASE) PO PRN ×3 (08:41→13:04)
[2022-12-11] MEDS ORDERED: ACETAMINOPHEN 1,000 MG/100 ML VIAL IV STA (08:41)
[2022-12-11] MEDS ORDERED: MoRPHine SULFATE 2 MG/ML CARP IV PRN (08:42)
--- NOTE | 2022-12-11 09:18 | Consultation ---
Date of Consultation December 11, 2022 Assessment & Plan (1) Right leg pain: MRI has been reviewed and compared to when she had last month. There are no changes to it. Again her right leg pain does not appear to be radicular. I still believe this is related to her DVT that was found last month. She is very hypersensitive and point tender still to the right lower extremity/calf region. Would work and recommend on physical therapy to regain her strength in her right lower extremity. There are no acute surgical indications at this point time from a spine standpoint. History of Present Illness Reason for Consultation: Back and right leg Attending Physician: Christiano Parekh MD History of Present Illness Is a 47-year-old female that we were consulted on about a month ago for same complaints. She has been readmitted to the hospital. A month ago she was found to have a DVT right lower extremity as well as PE. She states she has been on Eliquis since. At home she is been ambling with a cane. She still has pain in her back going down her right leg mostly along the posterior thigh and calf. She states her foot is very hypersensitive to anything touching it. Heating blanket wrapped blanket wrapped around her leg is palliative. Otherwise she has pain all the time. She also has some numbness in her foot. Left leg is asymptomatic.She now describes her right foot drop when ambulating. She states she has had this for the past month.She is on Neurontin at home for pain control. Allergies Allergy/AdvReac Type Severity Reaction Status Date / Time No Known Allergies Allergy Verified 11/05/22 19:25 Home Medications Medication Instructions Recorded Confirmed Type cholecalciferol (vitamin D3) 25 25 mcg PO QAM 11/05/22 12/10/22 History mcg (1,000 unit) tablet doxycycline hyclate 100 mg capsule 0 mg PO UD 11/05/22 12/10/22 History sofosbuvir 400 mg-velpatasvir 100 0 tab PO UD 11/05/22 12/10/22 History mg tablet apixaban 5 mg (74 tabs) tablets in 5 mg PO BID #74 ea 11/06/22 12/10/22 Rx a dose pack (Eliquis) Medical Marijuana See Rx Instructions .Route .COMPLEX 12/10/22 12/10/22 History Patient History Medical History ADHD Anxiety and depression Encounter for insertion of copper IUD Hepatitis C virus infection History of methamphetamine abuse Lyme disease Post traumatic stress disorder (PTSD) Sciatica Tobacco abuse Surgical History Hx of appendectomy Family History Mother Hypertension Father Hypertension Other Diabetes Heart disease Lung disease Social History Smoking Status: Former smoker Second Hand Exposure: No; Do You Dip or Chew Tobacco: No; Tobacco Cessation Education Requested by Patient: No Hx Alcohol Use: No Hx Substance Use: Yes Last Used Substance: Days (ago) Last Used Substance Other:: Last night Preferred Language: Samoan Communication Ability: Effective Human Resources Psychologist Required: No Beliefs That Will Affect Care: None marital status: Current Living Situation: Alone current occupational status: unemployed Other Information That Helps Us Care for You: No Feels Safe at Home: Yes Safety Concerns: Feels Safe At This Time Assistive Devices: Cane Review of Systems Review of Systems: All systems reviewed & are unremarkable except as noted in HPI & below Physical Exam Physical Exam: She is alert and oriented times She is in no acute distress She is up and ambulatory around the room upon my arrival She is very tender to light palpation of the posterior thigh and calf She ambulates independently around the room in no acute distress Gait is stable She has difficulty heel walking on the right. She can heel walk on the left She can toe walk bilateral Strength is otherwise intact bilateral lower extremities Results & Data Vital Signs (Past 12 Hours) Vital Signs Temp Pulse Resp BP Pulse Ox O2 Del Method 12/11/22 07:38 36.8 C 72 16 118/82 98 Room Air 12/10/22 21:28 36.8 C 63 18 106/66 99 Room Air Diagnostic Findings [facility], [place] [phone] Magnetic Resonance Report Patient:SANDRO DOWNS Admit Date:12/10/22 MR#:[id number] Address1:[address] [place] [address] Acct ID:[id number] Address2: Date:[address] [place] [address] Zip:[place] [address] Age:47 Location:ED Sex:F Room/Bed: Att Phy: Diagnosis:BLOOD CLOTS IN LEGS,LUNGS,TROUBLE BREATHING Deloris Phy:Osmin Green MD(LIDIA) Service Date:12/10/22 [facility] Phy: Interpreting Phy:Jasbir Chirinos MDAdmit Phy: Ordering Phy:Pedr oLuis Higuera M.D. cc: ~ MRI OF THE LUMBAR SPINE WITHOUT CONTRAST CLINICAL HISTORY: Right leg weak, foot drop, falling. COMPARISON STUDY: Lumbar spine MRI November 06, 2022. TECHNIQUE: Utilizing a 1.5 Leonie magnet and dedicated coil, multiplanar, multiecho imaging of the lumbar spine was performed without IV contrast. FINDINGS: For purposes of numbering on this exam, the L5-S1 disc space is assigned to axial image 3 of 6 of the lower axial sequences. Alignment of the lumbar spine is anatomic. Vertebral body heights are maintained. No marrow edema or replacement is present. There is no intracanalicular mass or fluid collection. The conus terminates at the T12-L1 level. Paravertebral soft tissues are unremarkable. Note is again made of a left paracentral disc protrusion at T11- T12. This is unchanged. L1-2: The central canal is patent. There is mild facet arthrosis. The neural foramen are patent. L2-3: There is mild disc space narrowing with disc bulge. There is mild central canal narrowing. Moderate facet arthrosis is present. There is mild bilateral neural foraminal stenosis, similar to previous MRI. L3-4: Moderate facet arthrosis is present. There is mild disc bulge with a small central annular tear. Central canal is patent. There is mild bilateral neural foraminal stenosis, similar to previous MRI. L4-5: There is mild disc bulge with a small annular tear but there is moderate facet arthrosis. The central canal is patent. There is mild bilateral neural foraminal stenosis. L5-S1: Moderate facet arthrosis is present. Central canal and neural foramen are patent. IMPRESSION: 1. No acute process within the lumbar spine by MRI. No significant change since MRI of November 06, 2022. 2. Moderate multilevel facet arthrosis and mild degenerative disc disease within the lumbar spine. Multilevel disc bulges with small annular tears. Mild central canal narrowing at L2-L3. No severe central canal stenosis. 3. Mild multilevel neural foraminal stenosis. ACT 112: Negative or not required by law. Electronically signed by: Jasbir Chirinos M.D. 12/10/2022 10:27 AM Dictated:12/10/22 1016 Transcribed: 12/10/22 1016
[2022-12-11] MEDS ORDERED: APIXABAN 5 MG TABLET PO SCH (09:45)
[2022-12-11] MEDS: ACETAMINOPHEN 500 MG TAB PO SCH ×2 (10:36→16:05)
--- NOTE | 2022-12-11 16:36 | Hospitalist Progress Note ---
Date of Service December 11, 2022 Assessment & Plan (1) Intractable pain: (2) Fall: (3) Right foot drop: Plan: - MRI lower back reviewed personally without acute findings--- moderate multilevel facet arthrosis and mild degenerative disc disease within the lumbar spine, multilevel disc bulges with small annular tears, mild central canal narrowing at L2-L3. No severe central canal stenosis. Mild multilevel neural foraminal stenosis. -Continue on gabapentin 600 mg, given 1 dose now and schedule 3 times daily -Check urine drug tox screen: Patient admits to medical marijuana use 2-3 times per day, has been clean off amphetamines since May 2022 -PT/OT consults Pain management consult for possible radicular pain. Ortho to consult -Fall precautions (4) Anxiety and depression: (5) Post traumatic stress disorder (PTSD): Plan: -Patient denies SI and HI, does not follow with psychiatry routinely, consider addition of antidepressant such as Cymbalta -Has trialed Paxil, Prozac, Wellbutrin without effect in the past, as per HPI- had suicidal ideations on Paxil as a teenager with 6 attempts. -Encourage outpatient psych follow-up, counselor/therapist recommended -Continue gabapentin (6) Hepatitis C virus infection: Plan: -Reports has not been taking hep C medications for some time, due to somnolence she is unable to come up with an exact timeframe, will require resumption of these medications upon discharge home (7) Acute deep vein thrombosis (DVT) of right lower extremity: (8) Acute pulmonary embolism with acute cor pulmonale: Plan: -Ultrasound of the right lower extremity shows resolved DVT-this was first instance of DVT/PE, scheduled to be on Eliquis x3 months -Patient is anticoagulated on Eliquis, resume DVT PPx -Eliquis CODE: Full code Dispo: From home, likely to remain in the hospital x 1-2 days, observation Admission and Anticipated Discharge Date Admission Date: December 10, 2022 Subjective Patient seen and examined at bedside. She reports significant pain on her right lower extremity. Reports pain on slight touch. Reports difficulty walking due to foot drop. Review of Systems Review of Systems: All systems reviewed & are unremarkable except as noted in Subjective Physical Exam Physical Exam: General: Awake, alert orient x3. Significant distress due to pain. Head: Normocephalic, atraumatic ENT: PERRL, EOMI, no pharyngeal exudate, mucous membranes moist Chest: Clear to auscultation, on 2L via NC, no adventitious breath sounds Cardiac: Regular rate and rhythm, no murmur, no JVD, normal peripheral pulses, good capillary refill Abdominal: NABS x 4 quadrants, soft, nondistended, nontender to palpation, no rebound or guarding Extremities: Tenderness on superficial touch on right foot. Psych: Normal mood and affect Neuro: AAO x 3, strength intact bilaterally and rated 5/5, no motor deficits, speech is clear. Foot drop present. Results & Data Results & Data Vital Signs (Past 12 Hours) Vital Signs Temp Pulse Resp BP Pulse Ox O2 Del Method 12/11/22 15:23 36.7 C 79 16 92/57 L 98 Room Air 12/11/22 07:38 36.8 C 72 16 118/82 98 Room Air Laboratory Results Laboratory Results WBC 6.36 K/ul (4.8-10.8) 12/10/22 08:35 RBC 4.42 M/uL (4.20-5.40) 12/10/22 08:35 Hgb 12.1 g/dl (12.0-16.0) 12/10/22 08:35 Hct 37.2 % (37.0-47.0) 12/10/22 08:35 MCV 84.2 fL (80.0-100.0) 12/10/22 08:35 MCH 27.4 pg (25.0-34.0) 12/10/22 08:35 MCHC 32.5 g/dL (32.0-36.0) 12/10/22 08:35 RDW Std Deviation 52.6 fL (36.4-46.3) H 12/10/22 08:35 RDW Coeff of Dino 17.0 % (11.5-14.5) H 12/10/22 08:35 Plt Count 308 K/uL (130-400) 12/10/22 08:35 MPV 11.2 fL (9.4-12.4) 12/10/22 08:35 Immature Gran % (Auto) 1.3 % 12/10/22 08:35 Neut % (Auto) 46.6 % 12/10/22 08:35 Lymph % (Auto) 32.7 % 12/10/22 08:35 Milam % (Auto) 11.2 % 12/10/22 08:35 Eos % (Auto) 7.4 % 12/10/22 08:35 Baso % (Auto) 0.8 % 12/10/22 08:35 Neut # (Auto) 2.97 K/uL (1.40-6.50) 12/10/22 08:35 Lymph # (Auto) 2.08 K/uL (1.2-3.4) 12/10/22 08:35 Milam # (Auto) 0.71 K/uL (0.11-0.59) H 12/10/22 08:35 Eos # (Auto) 0.47 K/uL (0-0.50) 12/10/22 08:35 Baso # (Auto) 0.05 K/uL (0-0.2) 12/10/22 08:35 Immature Gran # (Auto) 0.08 K/uL (0.01-0.20) 12/10/22 08:35 Sodium 138 mmol/L (136-145) 12/10/22 08:35 Potassium 3.9 mmol/L (3.5-5.1) 12/10/22 08:35 Chloride 107 mmol/L (98-107) 12/10/22 08:35 Carbon Dioxide 23 mmol/L (21-32) 12/10/22 08:35 Anion Gap 8 (3-11) 12/10/22 08:35 BUN 7 mg/dl (6-23) 12/10/22 08:35 Creatinine 0.69 mg/dl (0.6-1.2) 12/10/22 08:35 Est Cr Clr Drug Dosing 134.1 ml/min 12/10/22 08:35 Est GFR ( Amer) 121.8 ml/min 12/10/22 08:35 Est GFR (Non-Af Amer) 105.1 ml/min 12/10/22 08:35 BUN/Creatinine Ratio 10.1 (10-20) 12/10/22 08:35 Glucose 96 mg/dl (70-99(Fasting)) 12/10/22 08:35 Calcium 9.6 mg/dl (8.6-10.3) 12/10/22 08:35 Magnesium 1.8 mg/dl (1.7-2.4) 12/10/22 08:35 B-Natriuretic Peptide 154 pg/ml (0-100) H 12/10/22 08:35 TSH 2.676 uIu/ml (0.300-4.500) 12/10/22 08:53 Urine Opiates Screen Pos (Neg) H 12/10/22 16:35 Ur Methadone, Qual Neg (Neg) 12/10/22 16:35 Urine Barbiturates Neg (Neg) 12/10/22 16:35 Ur Phencyclidine (PCP) Neg (Neg) 12/10/22 16:35 U Amphetamin/Meth Scrn Neg (Neg) 12/10/22 16:35 MDMA (Ecstasy) Screen Neg (Neg) 12/10/22 16:35 U Benzodiazepines Scrn Neg (Neg) 12/10/22 16:35 Ur Cocaine Metabolite Neg (Neg) 12/10/22 16:35 U Marijuana (THC) Screen Pos (Neg) H 12/10/22 16:35 SARS-CoV-2, RNA, NAAT NEGATIVE (NEGATIVE) 12/10/22 12:35 Impressions Lumbar Spine MRI 12/10/22 07:55 MRI OF THE LUMBAR SPINE WITHOUT CONTRAST CLINICAL HISTORY: Right leg weak, foot drop, falling. COMPARISON STUDY: Lumbar spine MRI November 06, 2022. TECHNIQUE: Utilizing a 1.5 Leonie magnet and dedicated coil, multiplanar, multiecho imaging of the lumbar spine was performed without IV contrast. FINDINGS: For purposes of numbering on this exam, the L5-S1 disc space is assigned to axial image 3 of 6 of the lower axial sequences. Alignment of the lumbar spine is anatomic. Vertebral body heights are maintained. No marrow edema or replacement is present. There is no intracanalicular mass or fluid collection. The conus terminates at the T12-L1 level. Paravertebral soft tissues are unremarkable. Note is again made of a left paracentral disc protrusion at T11- T12. This is unchanged. L1-2: The central canal is patent. There is mild facet arthrosis. The neural foramen are patent. L2-3: There is mild disc space narrowing with disc bulge. There is mild central canal narrowing. Moderate facet arthrosis is present. There is mild bilateral neural foraminal stenosis, similar to previous MRI. L3-4: Moderate facet arthrosis is present. There is mild disc bulge with a small central annular tear. Central canal is patent. There is mild bilateral neural foraminal stenosis, similar to previous MRI. L4-5: There is mild disc bulge with a small annular tear but there is moderate facet arthrosis. The central canal is patent. There is mild bilateral neural foraminal stenosis. L5-S1: Moderate facet arthrosis is present. Central canal and neural foramen are patent. IMPRESSION: 1. No acute process within the lumbar spine by MRI. No significant change since MRI of November 06, 2022. 2. Moderate multilevel facet arthrosis and mild degenerative disc disease within the lumbar spine. Multilevel disc bulges with small annular tears. Mild central canal narrowing at L2-L3. No severe central canal stenosis. 3. Mild multilevel neural foraminal stenosis. ACT 112: Negative or not required by law. Electronically signed by: Jasbir Chirinos M.D. 12/10/2022 10:27 AM Venous Doppler Study 12/10/22 07:55 ULTRASOUND RIGHT LOWER EXTREMITY VENOUS CLINICAL HISTORY: Right leg pain. Recent deep venous thrombosis. COMPARISON STUDY: Bilateral lower extremity venous ultrasound dated 11/05/2022. TECHNIQUE: Real-time, grayscale, and color Doppler sonography of the deep veins of the right lower extremity was performed from the inguinal crease to the calf. Compression and augmentation were utilized. FINDINGS: There is no sonographic evidence of deep venous thrombosis identified in the right lower extremity. The common femoral, superficial femoral, and popliteal veins are patent and normally compressible. The greater saphenous vein and the profunda femoris vein at the junction with the common femoral vein are clear. The visualized calf veins are patent. IMPRESSION: There is no sonographic evidence of deep venous thrombosis identified in the right lower extremity. Deep venous thrombosis in the right calf seen on 11/05/2022 is no longer identified. ACT 112: Negative or not required by law. Electronically signed by: Pedro Luis Davison M.D. 12/10/2022 10:49 AM
--- NOTE | 2022-12-12 15:00 | Discharge Summary ---
Date of Service December 11, 2022 Admission HPI Per Admitting Provider This is a 47-year-old female with PMHx of hepatitis C, history of drug use with methamphetamine, sober since 05/28/2022, obesity with BMI of 32, tobacco use disorder, marijuana use, depression, Lyme disease. She is lethargic during the time of my exam due to being medicated for MRI which makes history difficult to obtain. Denied any swelling or skin erythema. who presents to the hospital with acute worsening right lower extremity pain for the past month. Pain extends from the thigh down to the foot.It feels like she is being stung by bees and or electricity all the time, and due to uncontrolled pain and not being able to sleep, presents here today. She has fallen twice due to her foot giving out on her, denies any presyncopal symptoms or LOC. She denies hitting her head. Pain is worsens with putting weight on and walking. Denied any lower back pain. No bowel or bladder incontinence. The foot drop has been present since her previous hospitalization, so at least 3.5 weeks, and she has been using a walker within her home recently to help prevent falls. She has a pain management appointment in December to establish care. She has been clean from substance abuse since May 2022 when she was using metham phetamine, admits to using ROS marijuana 2-3x per day for pain with medical marijuana cards, gabapentin 100 mg TID which she says does not help. Here in the ER, pt recieved MS IV 6 mg, ativan 2 mg po for the back MRI, toradol 15 mg IV, and decadron 6 mg IV. Pt has been taking Eliquis as prescribed, she reports having blood on toilet paper 2 days ago and states that she has a hemorrhoid which has been there for years. She thinks that this is bleeding more easily since being on blood thinner within the past month. She denies any lightheadedness, dizziness, appearance of looking pale or large blood loss. Pt was previously suicidal on paxil when she was a teenager, trialed prozan and wellbutrin but didn't like the way it made her feel. She is not currently on any kind of antidepressant and does not follow with psychiatry. She is crying at times, depressed, saying at one point her pain is so bad that she wishes she were . Pt denies suicidal ideations or homicidal ideations currently. Denies having any plans for suicidal attempts. Pt lives at home alone. Admission Exam Per Admitting Provider General: lethargic, awakes with verbal stimuli but drifts off intermittently, no apparent distress Head: Normocephalic, atraumatic ENT: PERRL, EOMI, no pharyngeal exudate, mucous membranes moist Chest: Clear to auscultation, on 2L via NC, no adventitious breath sounds Cardiac: Regular rate and rhythm, no murmur, no JVD, normal peripheral pulses, good capillary refill Abdominal: NABS x 4 quadrants, soft, nondistended, nontender to palpation, no rebound or guarding Extremities: Normal inspection, no peripheral edema or erythema, calfs nontender to palpation Psych: Normal mood and affect Neuro: AAO x 3, strength intact bilaterally and rated 5/5, no motor deficits, speech is clear, no peripheral sensory deficits Principal Diagnosis (1) Intractable pain: (2) Fall: (3) Right foot drop: Discharge Exam General: Awake, alert orient x3. Significant distress due to pain. Head: Normocephalic, atraumatic ENT: PERRL, EOMI, no pharyngeal exudate, mucous membranes moist Chest: Clear to auscultation, on 2L via NC, no adventitious breath sounds Cardiac: Regular rate and rhythm, no murmur, no JVD, normal peripheral pulses, good capillary refill Abdominal: NABS x 4 quadrants, soft, nondistended, nontender to palpation, no rebound or guarding Extremities: Tenderness on superficial touch on right foot. Psych: Normal mood and affect Neuro: AAO x 3, strength intact bilaterally and rated 5/5, no motor deficits, speech is clear. right Foot drop present. Discharge Data Allergies Allergy/AdvReac Type Severity Reaction Status Date / Time No Known Allergies Allergy Verified 11/05/22 19:25 Consultations 12/10/22 11:24 ED Decision to Admit Stat 12/10/22 12:02 Consult Orthopedic Spine Surgery Routine 12/11/22 09:49 Consult Pain Management Routine Ordered Studies 12/10/22 07:55 MR lumbar spine wo con Stat US venous doppler LE RT Stat Hospital Course (1) Intractable pain: (2) Fall: (3) Right foot drop: (4) Anxiety and depression: (5) Post traumatic stress disorder (PTSD): (6) Hepatitis C virus infection: (7) Acute deep vein thrombosis (DVT) of right lower extremity: (8) Acute pulmonary embolism with acute cor pulmonale: Patient expressed to the RN that she wanted to go home as she was not getting more pain medication. Call the patient over the phone; discussed regarding pain control regimen. She had been placed on Tylenol 1 g every 8 hours, gabapentin and oxycodone. Pain management consultation was also ordered. Recommended patient to stay in the hospital to undergo PT OT evaluation, orthotic consultation for foot drop and pain management consultation. I explained that her leaving the hospital could result in falls, head injury and even before proper evaluation is completed. She was alert oriented x3. She understood the risks. She denies any suicidal ideation. She was prescribed gabapentin and oxycodone. PC follow-up to be set up as outpatient. Total Time Total Time Spent Total Time Spent (In Minutes): 60 Total Time Includes: Examination of the Patient, Discharge Planning, Medication Reconciliation, Communication With Other Providers and Other Discharge Plan Discharge Items Patient Disposition: Against Medical Advice Reason For Visit: RLE PAIN Discharge Diagnosis: RLE pain Condition on Discharge: Fair Activity: Resume your previous activity Non-emergency contact: Primary Care Provider Call non-emergency contact if: you have any medication questions, your symptoms worsen, your pain is not controlled, your pain is worsening, your pain is unusual for you and your pain is concerning for you Follow-up/Referrals: Osmin Green MD [Primary Care Provider] - Addtl Attending Provider Instructions: You were with RLE pain. Repeat scan didn't show residual clot. Please continue taking eliquis. You were recommended to stay in the hospital to have pain management consultation and orthotics for foot drop. Please follow up with pain management as outpatient and your PCP Pending Studies at Discharge: No Stand-Alone Forms: [employer], Smoking Cessation Medications and DC Order Prescriptions: New acetaminophen [Tylenol Extra Strength] 500 mg Tablet 1,000 mg PO Q8 Qty: 30 0RF oxycodone 5 mg Tablet 5 mg PO Q6H PRN (Reason: severe pain) Qty: 5 0RF gabapentin 100 mg capsule 200 mg PO TID Qty: 30 0RF Continued cholecalciferol (vitamin D3) 25 mcg (1,000 unit) tablet 25 mcg PO QAM doxycycline hyclate 100 mg capsule 0 mg PO UD Rx Instructions: pt can't find her medication. sofosbuvir-velpatasvir 400-100 mg tablet 0 tab PO UD Rx Instructions: Per pt she isn't currently taking because it makes her extremely ill. Eliquis 5 mg (74 tabs) tablets,dose pack 5 mg PO BID Qty: 74 0RF Rx Instructions: 2 tab twice daily for 1 week, then 1 tab twice daily Medical Marijuana See Rx Instructions .ROUTE .COMPLEX Rx Instructions: as directed Discharge Orders: Left Against Medical Advice (Routine); Ordered 12/11/22 Ordered By: Christiano Parekh Admission Data Admit Date/Time: 12/10/22 11:36 Attending Provider: Christiano Parekh Admit Provider: Bryan Juarez Primary Care Provider: Osmin Green Other Providers: Loco Lebron ; Bryan Juarez ; Ana Laura Diaz
[2022-12-13 13:31] LABS: Codeine Urine NEGATIVE ng/mL (<50); Hydrocodone Urine NEGATIVE ng/mL (<50); Hydromor Urine NEGATIVE ng/mL (<50); Marijuana Quant, GCMS Urine 972 ng/mL (<5); Morphine Urine 4290 ng/mL (<50); Norhydrocodone Conf Ur NEGATIVE ng/mL (<50); Noroxycodone Urine 631 ng/mL (<50); Oxycodone Urine 170 ng/mL (<50); Oxymorph Urine 1590 ng/mL (<50)
== END 2022-12-11 19:00 | disposition left against medical advice (07) ==
LOC: EDINP 07:25 → ED 07:25 → SUATTDRO 11:36 → 3W 18:10